=== PATIENT | female | born 1945 | race Caucasian/White ===

== ENCOUNTER 2016-12-25 16:21 | Emergency (ER) | payer OTHER ==
[~2016-12-25] VITALS: Ht 160 cm; Wt 74.4 kg
[~2016-12-25 16:21] MED LIST: ACIDOPHILUS1 EAC2 PO; ASA81BEC PO; CAL-GEST200 MG PO; COPAXONE40 MG/1 ML SQ; CYMBALTA30 MG PO; DUONEB 2.5-0.5 M3 ML INH; FLONASE 0.05%50 MCG NASAL; LIORESAL 10 MG10 MG PO; LIPITOR10 MG PO; LISINOPRIL10 MG PO; MOBIC7.5 MG PO; MUCINEX600 MG PO; NEURONTIN600 MG PO; OMEPRAZOLE20 M1 PO; TOLTERODINE TART4 MG PO; TRAMADOL 50 MG50 MG PO; VITAMINC500 PO
[2016-12-25 17:12] LABS: ABSOLUTE BASOPHILS 0.1 thou/uL (0.0-0.2); ABSOLUTE EOSINOPHILS 0.5 thou/uL (0.0-0.7); ABSOLUTE LYMPHOCYTES 1.7 thou/uL (0.8-5.3); ABSOLUTE MONOCYTES 0.7 thou/uL (0.0-1.2); BASOPHILS 0.7 %; EOSINOPHILS 6.7 %; HEMATOCRIT 38.7 % (37.0-47.0); HEMOGLOBIN 13.1 gm/dL (12.0-15.0); LYMPHOCYTES 21.1 %; MCHC 33.7 g/dL (28.0-37.0); MONOCYTES 8.6 %; MPV 9.7 fl. (7.2-11.1); NUCLEATED RBCS 0 /100WBC; PLATELET COUNT* 151 thou/uL (150-400); POLYS 62.9 %; RBC 4.35 mil/uL (4.20-5.00); RDW-CV 13.3 % (10.5-14.5)
[2016-12-25 17:19] LABS: CALCIUM 8.4 mg/dL (8.5-10.1); CREATININE 1.1 mg/dL (0.6-1.3); POTASSIUM 4.3 mmol/L (3.5-5.1)
[2016-12-25 17:24] LABS: ALBUMIN 3.2 g/dL (3.4-5.0); TOTAL BILIRUBIN 0.5 mg/dL (<0.1-1.0); TOTAL PROTEIN 5.8 g/dL (6.4-8.2)
[2016-12-25] MEDS ORDERED: LEVAQUIN 500 M500 M2 PO (18:57)
[2016-12-25] MEDS ORDERED: PROMETHAZINE V473 ML PO (18:57)
[2016-12-25] MEDS ORDERED: PROAIR HFA8.5 GM INH (18:57)
[2016-12-25] MEDS ORDERED: MEDROLDOSEPACK PO (18:57)
[2016-12-25 19:36] VITALS: BP 123/64
--- NOTE | 2016-12-26 15:17 | EKG ---
[place] [address] ELECTROCARDIOGRAM REPORT Name: ELKE AREVALO Room: [facility]#: [id number] Admission: 12/25/16 Attend Phys: Discharge: 12/25/16 Date of : 45 Report #: [id number] THIS REPORT FOR: //name// [facility] ED Test Date: 2016-12-25 Test Time: 15:53:34 Pat Name: ELKE AREVALO Department: Room: Gender: F Building Mover: DEAN : 1945 Requested By: Josey Rojas Order Number: [id number] MD: Aric Elliott Measurements Intervals [place] Rate: 77 P: 27 PA: 216 QRS: 7 QRSD: 91 T: 24 QT: 408 QTc: 462 Interpretive Statements Sinus rhythm Prolonged PA interval Baseline wander in lead(s) V5 Compared to ECG 12/19/2016 21:35:58 No significant changes Electronically Signed On 12-26-2016 15:17:28 RUBBER CALENDER HELPER by Aric Elliott [email or web address] <ELECTRONICALLY SIGNED> By: Aric Elliott MD, [facility] 12/26/16 1517 1553 1553 Aric Elliott MD, FACC /EPI
[2016-12-30] MEDS ORDERED: PREDNISONE 10 M10 MG PO (11:58)
[2016-12-30] MEDS ORDERED: CENTRUM SILVER1 EAC4 PO (11:59)
[2017-01-21] MEDS ORDERED: DOLOPHINE HCL5 MG PO (19:26)
[2017-01-22] MEDS ORDERED: PREDNISONE 20 M20 MG PO (00:56)
[2017-01-22] MEDS ORDERED: ACIDOPHILUS1 EACH PO (00:57)
[2017-01-22] MEDS ORDERED: SYNTHROID88 MCG PO (00:59)
[2017-01-22] MEDS ORDERED: TROSPIUM CHLORI20 MG PO (01:00)
[2017-01-22] MEDS ORDERED: DUONEB 2.5-0.5 M3 ML PO (01:02)
[2017-01-26] MEDS ORDERED: LEVAQUIN 750 M750 MG PO (13:36)
[2017-01-26] MEDS ORDERED: NITROGLYCERIN0.4 MG SUBLING (13:37)
== END 2016-12-25 19:37 | disposition home or self-care (01) ==
LOC: M.ERS 16:21
PROVIDERS: Physician Assistant
DX: J18.9 Pneumonia, unspecified organism (principal); K21.9 Gastro-esophageal reflux disease without esophagitis; F41.9 Anxiety disorder, unspecified; E03.9 Hypothyroidism, unspecified; G35 Multiple sclerosis; R41.82 Altered mental status, unspecified; G89.29 Other chronic pain; Z87.440 Personal history of urinary (tract) infections; Z88.1 Allergy status to other antibiotic agents; Z88.5 Allergy status to narcotic agent; Z88.2 Allergy status to sulfonamides; Z88.8 Allergy status to other drugs, medicaments and biological substances

== ENCOUNTER 2017-08-21 15:28 | Emergency (ER) | payer OTHER ==
[~2017-08-21] VITALS: Ht 157.5 cm; Wt 86.2 kg
[~2017-08-21 15:28] MED LIST changes: +ACIDOPHILUS1 EACH PO; +CENTRUM SILVER1 EAC4 PO; +DOLOPHINE HCL5 MG PO; +DUONEB 2.5-0.5 M3 ML PO; +LEVAQUIN 500 M500 M2 PO; +LEVAQUIN 750 M750 MG PO; +MEDROLDOSEPACK PO; +NITROGLYCERIN0.4 MG SUBLING; +PREDNISONE 10 M10 MG PO; +PREDNISONE 20 M20 MG PO; +PROAIR HFA8.5 GM INH; +PROMETHAZINE V473 ML PO; +SYNTHROID88 MCG PO; +TROSPIUM CHLORI20 MG PO
[2017-08-21 15:52] LABS: ABSOLUTE EOSINOPHILS 0.2 thou/uL (0.0-0.7); ABSOLUTE LYMPHOCYTES 1.4 thou/uL (0.8-5.3); ABSOLUTE MONOCYTES 0.4 thou/uL (0.0-1.2); ABSOLUTE NEUTROPHILS 4.7 thou/uL (1.6-8.1); BASOPHILS 0.4 %; EOSINOPHILS 3.5 %; HEMATOCRIT 35.5 % (37.0-47.0); HEMOGLOBIN 11.8 gm/dL (12.0-15.0); LYMPHOCYTES 20.5 %; MCH 27.6 pg (26.0-34.0); MCHC 33.1 g/dL (28.0-37.0); MCV 83.4 fL (80.0-100.0); MPV 8.8 fl. (7.2-11.1); NUCLEATED RBCS 0 /100WBC; PLATELET COUNT* 192 thou/uL (150-400); POLYS 69.6 %; RBC 4.26 mil/uL (4.20-5.00); RDW-CV 16.5 % (10.5-14.5); WBC 6.8 thou/uL (4.0-11.0)
[2017-08-21 15:59] LABS: APTT 23.5 Seconds (25.0-31.3); PROTIME 9.5 Seconds (9.20-11.50)
[2017-08-21 16:00] LABS: ANION GAP 8 mmol/L (7-16); BUN 16 mg/dL (7-18); CALCIUM 9.1 mg/dL (8.5-10.1); CHLORIDE 106 mmol/L (98-107); CO2 27 mmol/L (21-32); GLUCOSE 119 mg/dL (70-99); POTASSIUM 4.5 mmol/L (3.5-5.1); SODIUM 141 mmol/L (136-145)
[2017-08-21 16:23] LABS: ALKALINE PHOSPHATASE 63 U/L (46-116); CK-MB MASS 1.1 ng/mL (<0.5-3.6); LIPASE 81 U/L (73-393); MAGNESIUM 1.7 mg/dL (1.8-2.4); NT-PRO BRAIN NAT PEPTIDE 113 pg/mL (<300); SGOT 42 U/L (15-37); SGPT 49 U/L (30-65); TOTAL BILIRUBIN 0.3 mg/dL (<0.1-1.0); TOTAL PROTEIN 6.4 g/dL (6.4-8.2); TROPONIN-I LEVEL <0.06 ng/mL (<0.06)
[2017-08-21 17:07] VITALS: BP 119/69
--- NOTE | 2017-08-22 09:49 | EKG ---
[place] [address] ELECTROCARDIOGRAM REPORT Name: ELKE AREVALO Room: [facility]#: [id number] Admission: 08/21/17 Attend Phys: Discharge: 08/21/17 Date of : 45 Report #: [id number] THIS REPORT FOR: //name// [facility] ED Test Date: 2017-08-21 Test Time: 15:56:03 Pat Name: ELKE AREVALO Department: Room: Gender: F Last Cleaner: Tomas GORDON : 1945 Requested By: Rodrick Lockwood Order Number: [id number] MD: North Mcneal Measurements Intervals [place] Rate: 105 P: 47 NE: 184 QRS: 24 QRSD: 95 T: 37 QT: 354 QTc: 468 Interpretive Statements Sinus tachycardia Compared to ECG 01/21/2017 19:11:34 Myocardial infarct finding no longer present Electronically Signed On 08-22-2017 9:49:27 CDT by North Mcneal [email or web address] <ELECTRONICALLY SIGNED> By: North Mcneal MD, [facility] 08/22/17 0949 1556 1556 North Mcneal MD, FACC /EPI
== END 2017-08-21 17:09 | disposition home or self-care (01) ==
LOC: M.ERS 15:28
PROVIDERS: Family Medicine
DX: R09.89 Other specified symptoms and signs involving the circulatory and respiratory systems (principal); E03.9 Hypothyroidism, unspecified; F41.9 Anxiety disorder, unspecified; K21.9 Gastro-esophageal reflux disease without esophagitis; G89.29 Other chronic pain; Z88.1 Allergy status to other antibiotic agents; Z88.6 Allergy status to analgesic agent; Z88.5 Allergy status to narcotic agent; Z88.8 Allergy status to other drugs, medicaments and biological substances

== ENCOUNTER 2017-12-09 08:09 | Emergency (ER) | payer OTHER ==
[~2017-12-09] VITALS: Ht 162.6 cm; Wt 68.0 kg
[2017-12-09] MEDS ORDERED: SENNA8.6 MG PO (08:31)
[2017-12-09] MEDS ORDERED: SYMBICORT160 MCG/4. INH (08:31)
[2017-12-09] MEDS ORDERED: VESICARE 5 MG TA5 MG PO (08:32)
[2017-12-09] MEDS ORDERED: GLATIRAMER40 MG/1 ML INJECTION (08:33)
[2017-12-09] MEDS ORDERED: ONDANSETRON HCL4 M2 PO ×2 (08:34→08:35)
[2017-12-09] MEDS ORDERED: BISACODYL SUPP10 MG RECTAL (08:34)
[2017-12-09] MEDS ORDERED: MIRALAX17 GM PO (08:35)
[2017-12-09] MEDS ORDERED: TYLENOL325 MG PO (08:35)
[2017-12-09 08:47] LABS: ABSOLUTE EOSINOPHILS 0.2 thou/uL (0.0-0.7); ABSOLUTE LYMPHOCYTES 1.3 thou/uL (0.8-5.3); ABSOLUTE MONOCYTES 0.5 thou/uL (0.0-1.2); ABSOLUTE NEUTROPHILS 3.8 thou/uL (1.6-8.1); BASOPHILS 0.6 %; EOSINOPHILS 3.7 %; HEMATOCRIT 40.3 % (37.0-47.0); HEMOGLOBIN 13.4 gm/dL (12.0-15.0); LYMPHOCYTES 22.6 %; MCH 27.4 pg (26.0-34.0); MCHC 33.1 g/dL (28.0-37.0); MCV 82.7 fL (80.0-100.0); MONOCYTES 8.5 %; MPV 9.3 fl. (7.2-11.1); NUCLEATED RBCS 0 /100WBC; PLATELET COUNT* 175 thou/uL (150-400); POLYS 64.6 %; RBC 4.88 mil/uL (4.20-5.00); RDW-CV 14.9 % (10.5-14.5); WBC 5.9 thou/uL (4.0-11.0)
[2017-12-09 08:57] LABS: CALCIUM 9.1 mg/dL (8.5-10.1); POTASSIUM 4.4 mmol/L (3.5-5.1)
[2017-12-09 09:02] LABS: ALBUMIN 3.5 g/dL (3.4-5.0); TOTAL BILIRUBIN 0.3 mg/dL (<0.1-1.0); TOTAL PROTEIN 6.9 g/dL (6.4-8.2)
[2017-12-09] MEDS ORDERED: CLONAZEPAM0.25 MG PO (10:28)
[2017-12-09 11:35] VITALS: BP 128/59
== END 2017-12-09 12:18 | disposition home or self-care (01) ==
LOC: M.ERS 08:09
PROVIDERS: Emergency Medicine
DX: H05.20 Unspecified exophthalmos (principal); E03.9 Hypothyroidism, unspecified; F41.9 Anxiety disorder, unspecified; K21.9 Gastro-esophageal reflux disease without esophagitis; G89.29 Other chronic pain; G62.9 Polyneuropathy, unspecified; Z88.5 Allergy status to narcotic agent; Z88.1 Allergy status to other antibiotic agents; Z88.2 Allergy status to sulfonamides; Z88.6 Allergy status to analgesic agent; Z87.440 Personal history of urinary (tract) infections

== ENCOUNTER 2018-01-04 03:19 | Inpatient (IN) | payer OTHER ==
[~2018-01-04] VITALS: Ht 162.6 cm; Wt 96.6 kg
[2018-01-04] VITALS (21 sets, daily range): BP systolic 84–131; BP diastolic 25–61
[~2018-01-04 03:19] MED LIST changes: +BISACODYL SUPP10 MG RECTAL; +CLONAZEPAM0.25 MG PO; +GLATIRAMER40 MG/1 ML INJECTION; +MIRALAX17 GM PO; +ONDANSETRON HCL4 M2 PO; +SENNA8.6 MG PO; +SYMBICORT160 MCG/4. INH; +TYLENOL325 MG PO; +VESICARE 5 MG TA5 MG PO
[2018-01-04 03:55] LABS: HEMATOCRIT 44.8 % (37.0-47.0); HEMOGLOBIN 14.4 gm/dL (12.0-15.0); MCH 27.2 pg (26.0-34.0); MCHC 32.1 g/dL (28.0-37.0); MCV 84.6 fL (80.0-100.0); MPV 9.8 fl. (7.2-11.1); NUCLEATED RBCS 0 /100WBC; PLATELET COUNT* 152 thou/uL (150-400); RDW-CV 15.8 % (10.5-14.5)
[2018-01-04 03:57] LABS: POC CA IONIZED 4.2 mg/dL (4.5-5.3); POC CREATININE 1.6 mg/dL (0.6-1.3); POC HEMOGLOBIN 14.6 g/dL (12.0-17.0); POC POTASSIUM 5.3 mmol/L (3.5-4.9)
[2018-01-04 04:02] LABS: CALCIUM 9.4 mg/dL (8.5-10.1); CREATININE 1.8 mg/dL (0.6-1.3); POTASSIUM 5.6 mmol/L (3.5-5.1)
[2018-01-04 04:07] LABS: ALBUMIN 3.3 g/dL (3.4-5.0); TOTAL BILIRUBIN 0.9 mg/dL (<0.1-1.0)
[2018-01-04 04:15] LABS: APTT 21.3 Seconds (25.0-31.3); INR 1.1; PROTIME 11.1 Seconds (9.20-11.50)
--- NOTE | 2018-01-04 04:18 | NUR ---
PT ARRIVED BY AMBULANCE AT [address] FOR SCAN ON ARRIVAL. UNCLEAR EXACTLY WHAT HAS OCCURRED. PT NOT RESPONDING ON ARRIVAL. CT SCAN DONE AND PT BROUGHT BACK TO ED. PT WAS MOVING BOTH FEET AND FINGERS BUT NOT ABLE TO LIFT ARMS OR LEGS. NO FACIAL DROOP NOTED. PT HAS MS AND A TEMPEATURE OF 101. PT WILL OPEN EYES AND SAY A FEW WORDS. DR KIMBALL DISCONTINUED THE CODE STROKE AT 0343. UNABLE TO DO AN NIH BASELINE
[2018-01-04 04:20] LABS: BE -1.3 mmol/L (-2 to +3); HCO3 22.7 mmol/L (22.0-26.0); PO2 85.4 mmHg (75.0-100.0); pH 7.417 (7.340-7.450)
[2018-01-04 04:37] LABS: URINE BILIRUBIN NEGATIVE (Negative); URINE BLOOD NEGATIVE (Negative); URINE CLARITY CLEAR; URINE COLOR DARK YELLOW; URINE GLUCOSE-RANDOM NEGATIVE (Negative); URINE KETONES TRACE (Negative); URINE LEUKOCYTES-REFLEX NEGATIVE (Negative); URINE NITRITE-REFLEX NEGATIVE (Negative); URINE PROTEIN NEGATIVE (Negative); URINE UROBILINOGEN 0.2 E.U./dl (0.2-1.0)
[2018-01-04 04:39] LABS: INFLUENZA A ANTIGEN None Detected (None Detect); INFLUENZA B ANTIGEN None Detected (None Detect)
[2018-01-04 04:44] LABS: AMP/METHAMP Negative (Negative); BARBITURATES Negative (Negative); BENZODIAZEPINES Negative (Negative); COCAINE Negative (Negative); METHADONE POSITIVE (Negative); OPIATES Negative (Negative); PCP Negative (Negative); THC Negative (Negative)
[2018-01-04 04:49] LABS: ABSOLUTE LYMPHOCYTES 0.8 thou/uL (0.8-5.3); ABSOLUTE MONOCYTES 2.3 thou/uL (0.0-1.2); ABSOLUTE NEUTROPHILS 22.9 thou/uL (1.6-8.1); ANISOCYTOSIS Occasional; PLATELET ESTIMATE ADEQUATE; TOXIC GRANULATION Occasional
--- NOTE | 2018-01-04 06:30 | NUR ---
RECIEVED REPORT FROM ABDULAZIZ GUEVARA. PT TRANSFERRED TO RM 220. PT IS A&0X1-2 AND DROWSY BUT AROUSABLE PROBABLY DUE TO BENADRYL ADMINISTRATION BECAUSE OF ALLERGIC REACTION TO LEVAQUIN. PT ON O2 AT 3L NC WITH 93% O2 SAT. PT TRACING SR ON TELE. UNABLE TO GET A FULL ADMISSION HISTORY DUE TO PTS LOC. VSS. PHYSICAL ASSESSMENT COMPLETED AND CHARTED. CALL LIGHT WITHIN REACH.
[2018-01-04 10:15] LABS: HEMATOCRIT 32.1 % (37.0-47.0); MCH 27.4 pg (26.0-34.0); MCHC 32.8 g/dL (28.0-37.0); MCV 83.6 fL (80.0-100.0); MPV 9.5 fl. (7.2-11.1); NUCLEATED RBCS 0 /100WBC; PLATELET COUNT* 139 thou/uL (150-400); RBC 3.85 mil/uL (4.20-5.00); RDW-CV 15.7 % (10.5-14.5); WBC 21.8 thou/uL (4.0-11.0)
[2018-01-04 10:18] LABS: HEMOGLOBIN 10.5 gm/dL (12.0-15.0)
[2018-01-04 10:23] LABS: BE -1.7 mmol/L (-2 to +3); HCO3 24.4 mmol/L (22.0-26.0); PO2 VENOUS 43.5 mmHg (35.0-45.0)
[2018-01-04 10:46] LABS: CALCIUM 7.7 mg/dL (8.5-10.1); CREATININE 1.3 mg/dL (0.6-1.3)
[2018-01-04 10:47] LABS: ABSOLUTE LYMPHOCYTES 2.2 thou/uL (0.8-5.3); ABSOLUTE NEUTROPHILS 19.6 thou/uL (1.6-8.1); PLATELET ESTIMATE ADEQUATE
[2018-01-04 10:50] LABS: ALBUMIN 2.3 g/dL (3.4-5.0); MAGNESIUM 1.3 mg/dL (1.8-2.4); PHOSPHORUS* 3.3 mg/dL (2.5-4.9); POTASSIUM 4.4 mmol/L (3.5-5.1); TOTAL BILIRUBIN 0.6 mg/dL (<0.1-1.0); TOTAL PROTEIN 4.6 g/dL (6.4-8.2)
--- NOTE | 2018-01-04 11:22 | NUR ---
0900- PHYSICIAN CONTACTED DUE TO PT HYPOTENSIVE AND LETHARGIC STATUS. PT ST ON THE MONITOR AND IS TOLERATING 3L PER NC AT THIS TIME. PT ON BEDREST TO CONSERVE ENERGY AND IS REQUESTING TO GO TO SLEEP ANYTIME SHE IS BEING EVALUATED. FLUID BOLUS PROVIDED TO PT AND PT IS ALSO TOLERATING CURRENT ABX TREATMENT. 1000-DR MOROCHO IN PT ROOM TO DISCUSS TRANSFER TO ICU FOR SPECIFIC MEDICATIONS AND CENTRAL LINE PLACEMENT. PT AGREEABLE TO THIS PLAN OF CARE AT THIS TIME. 1100-PT TRANSFERED TO ICU AT THIS TIME. PT STILL HYPOTENSIVE, PT PERSONAL BELONGING BAG AND ICED TEA TAKEN WITH HER. NO PO MEDS WERE PROVIDED TO THE PT BY THIS RN THIS SHIFT. PT TOLERATED TRANSFER AND IS GETTING CONSENTED FOR CENTRAL LINE PLACEMENT WHEN THIS RN LEFT
--- NOTE | 2018-01-04 11:28 | NUR ---
Pt transferred to ICU prior to this CM being able to assess
--- NOTE | 2018-01-04 11:39 | EKG ---
[place] [address] ELECTROCARDIOGRAM REPORT Name: ELKE AREVALO Room: [address] ADM IN [facility]#: [id number] Admission: 01/04/18 Attend Phys: Trini Ponce Discharge: Date of : 45 Report #: [id number] THIS REPORT FOR: //name// [facility] ED Test Date: 2018-01-04 Test Time: 03:50:01 Pat Name: ELKE AREVALO Department: Room: [facility] Gender: F Diamond Mounter: GL : 1945 Requested By: Abelardo Mike Order Number: [id number] MD: North Mcneal Measurements Intervals [place] Rate: 125 P: 32 VT: 152 QRS: 1 QRSD: 90 T: -9 QT: 311 QTc: 449 Interpretive Statements Sinus tachycardia Borderline T abnormalities, inferior leads Baseline wander in lead(s) V4 Compared to ECG 08/21/2017 15:56:03 rate slowed Electronically Signed On 01-04-2018 11:39:41 TABLET MAKING MACHINE OPERATOR HELPER by North Mcneal [email or web address] <ELECTRONICALLY SIGNED> By: North Mcneal MD, [facility] 01/04/18 1139 0350 0350 North Mcneal MD, [facility] /EPI
--- NOTE | 2018-01-04 11:48 | NUR ---
1115 RECIEVED PT FROM FLOOR, TRANSPORTED DOWN VIA BED AND PAOLA ROBBINS. REVIEWED ORDERS/LABS AND ASSESSMENT-PT ALERT AND ORIENTED, BP 83/49 HR 99 SPO2 99% ON 4LNC. DR. CORREA AT BEDSIDE TO PLACE CENTRAL LINE. WILL REVIEW ORDERS AND CALL CONSULTS.
[2018-01-05] VITALS (12 sets, daily range): BP systolic 113–155; BP diastolic 53–82
--- NOTE | 2018-01-05 00:42 | NUR ---
INITAL ASSESMENT COMPLETED AT 1999. PT ALERT AND ORIENTED X 4, DENIED PAIN OR DISCOMFORT. NICK CATHETER PLACED AT 2230. CALL LIGHT IN REACH, PT USING APPROPRIATELY.
[2018-01-05 04:13] LABS: HEMATOCRIT 30.8 % (37.0-47.0); HEMOGLOBIN 10.2 gm/dL (12.0-15.0); MCH 27.6 pg (26.0-34.0); MCV 83.6 fL (80.0-100.0); MPV 9.6 fl. (7.2-11.1); RBC 3.69 mil/uL (4.20-5.00); RDW-CV 15.6 % (10.5-14.5); WBC 14.9 thou/uL (4.0-11.0)
[2018-01-05 04:27] LABS: CALCIUM 7.2 mg/dL (8.5-10.1); CREATININE 0.8 mg/dL (0.6-1.3); MAGNESIUM 1.5 mg/dL (1.8-2.4)
--- NOTE | 2018-01-05 09:20 | NUR ---
PATIENT CARE ASSUMED AT 0700. PATIENT AOX4. PLEASANT. COOPERATIVE. PATIENT FROM [facility]. STATES SHE WANTS US TO CALL THE SKILLED NURSING TO MAKE SURE HER GLASSES ARE IN ROOM. THIS NURSE CALLED AND GAVE THE ICU NUMBER TO RETURN PHONE CALL. PATIENT TITRTED FROM 2L NC TO ROOM AIR. VITALS STABLE. TRACING NSR TO SINUS TACH ON BRIQUETTE MACHINE OPERATOR. ORDERS TO TRANSFER UPSTAIRS. REPORT GIVEN TO PAOLA POWERS. PATIENT LEFT UNIT BY WHEELCHAIR AT 0930 WITH ELECTROCHEMIST.
--- NOTE | 2018-01-05 12:31 | CON ---
[address] [address] CONSULTATION Name: ELKE AREVALO Taina Room: [address] IN [facility].#: [id number] Admission: 01/04/18 Attend Phys: Trini Ponce Discharge: Date of : 45 Report #: [id number] THIS REPORT FOR: //name// CC: ASHLEY physician/PCP Jhon Bashir DATE OF SERVICE: 01/04/2018 INFECTIOUS DISEASE CONSULTATION ATTENDING PHYSICIAN: Jhon Bashir DO REASON FOR EVALUATION: Septic shock, probable pneumonitis with lactic acidemia. HISTORY OF PRESENT ILLNESS: Chart reviewed, patient examined. This is a 72-year-old woman, with history of MS, complicated by some deficits, peripheral neuropathy, who is a [facility] resident, was admitted due to profound encephalopathy with loss of responsiveness, some concern about stroke with description of a facial droop and some slurred speech. She was evaluated and has a question of basilar infiltrate. Urinalysis was otherwise unremarkable. She was noted to have some low grade temperature elevations. After being admitted to the floor, was found to have somewhat refractory hypotension. She was given additional fluids and transitioned to the Intensive Care Unit and slowly has improved from a mental status standpoint. She was empirically placed on vancomycin and meropenem. She has not required pressor support at this point. She is on supplemental oxygen per nasal cannula. ALLERGIES: MULTIPLE INCLUDING SULFA, MORPHINE, CODEINE, HYDROCODONE, CEPHALOSPORINS, PENICILLINS, erythromycin, CHLORPHENIRAMINE, MEPERIDINE, LEVOFLOXACIN. CURRENT MEDICATIONS: Includes meloxicam, lisinopril, fluticasone, aspirin, levothyroxine, vancomycin, methadone, duloxetine, baclofen, atorvastatin, ipratropium and albuterol inhaler, gabapentin, meropenem, methylprednisolone. PAST MEDICAL HISTORY: As noted above, history of MS, chronic pain syndrome, peripheral neuropathy, hypothyroidism, reflux, anxiety, depression, nutcracker esophagus, history of urinary tract infections, renal insufficiency. SOCIAL HISTORY: Nonsmoker, no ethanol. FAMILY HISTORY: Noncontributory. REVIEW OF SYSTEMS: Limited due to the altered mental status. PHYSICAL EXAMINATION: [place] [address] CONSULTATION Name: ELKE AREVALO Room: [address] IN [facility]#: [id number] Admission: 01/04/18 Attend Phys: Trini Ponce Discharge: Date of : 45 Report #: [id number] GENERAL: She appears chronically ill, mildly undernourished. She is in mild to moderate distress. VITAL SIGNS: Temperature max 101.0, repeat 98.9, pulse 107, respirations 18, blood pressure 84/25. SKIN: Warm, dry, no rashes. HEENT: No conjunctivitis. Oropharynx is dry. No ulcers. NECK: Supple. LUNGS: Diminished breath sounds, scattered crackles at the bases. HEART: Regular, tachycardic. Soft systolic murmur. ABDOMEN: Soft, nontender, nondistended. There are no peritoneal signs. No CVA tenderness. GENITOURINARY: Deferred. RECTAL: Deferred. LABORATORY DATA: Chest x-ray, right basilar infiltrate. Electrolytes: Sodium 138, potassium 5.6, chloride 102, bicarbonate is 25, BUN and creatinine 25 and 1.8, glucose of 135. AST of 50, ALT of 64, albumin 3.3, total protein 7.0. ABG, pH 7.417, pCO2 of 36.0, pO2 of 85.4 on 4 liters. Lactic acid initially was 3.2, serially down to 2.5. Influenza antigen was negative. Urinalysis unremarkable. CBC: White count 26.0, H and H and 14.4 and 44.8, platelets of 152. Did have occasional toxic granulomas. Drug screen was positive for methadone. ASSESSMENT: Septic shock of uncertain source, perhaps early pneumonitis. Urinalysis does not favor complicated urinary tract infection. It is reasonable to continue empiric antimicrobial therapy at this point. She has had multiple allergies. We will await cultures of the blood. At this point, she is mildly hemodynamically unstable, but seems to be responding to fluid resuscitation. Defer any additional intervention based on clinical deterioration. We may need to consider imaging of the abdomen and pelvis if does not respond and do not otherwise have a clear source of infection. Thank you, we will follow. <ELECTRONICALLY SIGNED> By: Jose Guadalupe Sanchez MD 01/05/18 1231 2201 0056Joangie Sanchez MD /nt
--- NOTE | 2018-01-05 13:14 | NUR ---
Nutrition: Pt admitted for sepsis. H/o GERD, MS, nutcracker esophagus, trouble swallowing. From [place]. Usual wt is ~180-190#, today's wt is recorded as 200#. Diet advanced to Regular. Labs: alb 1.3, prealb 15, K+ 5.3. Has a central line. Pt appears nutritionally stable at this time. Will follow labs, po intake, wt. Follow up 01/09/18.
--- NOTE | 2018-01-05 18:47 | NUR ---
PATIENT PROGRESSING TOWARDS GOALS. UP WITH ASSIST X1 TO WHEELCHAIR. VSS. GRADUATE ASSISTANT TRACING SR. ADVANCED TO REGULAR DIET PER SPEECH THERAPY EVALUATION. PATIENT TOLERATING A REGULAR DIET WITHOUT NAUSEA OR VOMITING. HOURLY ROUNDING CHARTED. BED ALARM ON. CALL LIGHT WITHIN REACH. WILL CONTINUE TO MONITOR.
[2018-01-06] VITALS: BP 112/61
--- NOTE | 2018-01-06 03:06 | NUR ---
PATIENT RESTED IN BED, NO ACUTE CHANGES. PATIENT DID NOT SHOW SIGNS OF DISTRESS. FALL PRECAUTIONS IN PLACE, CALL LIGHT WITH IN REACH, HOURLY ROUNDING OBSERVED, BED ALARM ON.
[2018-01-06 03:43] LABS: HEMATOCRIT 30.4 % (37.0-47.0); MCH 27.3 pg (26.0-34.0); MCV 82.7 fL (80.0-100.0); RBC 3.68 mil/uL (4.20-5.00); RDW-CV 15.3 % (10.5-14.5)
[2018-01-06 03:48] LABS: CREATININE 1.2 mg/dL (0.6-1.3); POTASSIUM 3.9 mmol/L (3.5-5.1)
[2018-01-06 04:00] VITALS: BP 132/62
[2018-01-06 08:23] VITALS: BP 138/78
[2018-01-06 12:32] VITALS: BP 141/69
--- NOTE | 2018-01-06 14:38 | NUR ---
Pt is A&O. Resides at [facility]. Pt states that she has a walker and wc that she can use, Pt primarily uses the wc. Spoke with Siobhan at [facility], they are able to accept Pt back over the weekend, if medically stable for dc. Siobhan asked that transportation be arranged through [employer] [phone]. DC orders will need to be faxed to [phone]. Nurse report number is [id number]
[2018-01-06 15:46] VITALS: BP 142/70
--- NOTE | 2018-01-06 16:40 | NUR ---
ASSUMED CARE OF PT AT 0730. PT REMAINS A&O CALMA AND COOPERATIVE. PT C/O PAIN CONTROLLED WITH SCHEDULED PAIN MEDICATION. PT VSS ON ROOM AIR AND TRACING SR ON THE MONITOR. PT HAS HAD A GOOD APPETITTE AND HAS AT GREATER THAN 75% OF ALL MEALS TODAY. NURSING ASSESSMENT COMPLETED AND DOCUMENTS. MEDICATIONS ADMINISTERED PER APR. HOURLY ROUNDING COMPLETED FOR PT COMFORT AND SAFTEY. NURSING WILL CONTINUE TO MONITOR.
[2018-01-06 20:00] VITALS: BP 135/72
[2018-01-07] VITALS: BP 148/73
--- NOTE | 2018-01-07 00:09 | NUR ---
PATIENT RESTED IN BED, NO ACUTE CHANGES. PATIENT DID NOT SHOW SIGNS OF DISTRESS. FALL PRECAUTIONS IN PLACE, CALL LIGHT WITH IN REACH, HOULRY ROUNDING OBSERVED, BED ALARM ON.
[2018-01-07 04:00] VITALS: BP 161/85
[2018-01-07 04:16] LABS: HEMATOCRIT 30.8 % (37.0-47.0); HEMOGLOBIN 10.4 gm/dL (12.0-15.0); MCH 27.8 pg (26.0-34.0); MCHC 33.7 g/dL (28.0-37.0); MCV 82.5 fL (80.0-100.0); MPV 10.4 fl. (7.2-11.1); RBC 3.74 mil/uL (4.20-5.00); WBC 10.2 thou/uL (4.0-11.0)
[2018-01-07 05:04] LABS: POTASSIUM 4.1 mmol/L (3.5-5.1)
[2018-01-07 08:43] VITALS: BP 170/81
--- NOTE | 2018-01-07 09:00 | NUR ---
REC'D REPORT FROM NOC RN, ASSUMED CARE OF PT APPROX 0730. PT HAS BEEN SLEEPING UNTIL BREAKFAST ARRIVED AT 0830. NOW A&O X4, ABLE TO COMMUNICATE NEEDS TO STAFF. INDIVIDUAL PENSION CONSULTANT IN PLACE, SR. O2 SATS >92% ON RA. ASSESSMENT COMPLETE. VSS. IV SL. CALL LIGHT WITHIN REACH.
[2018-01-07 15:35] VITALS: BP 159/70
--- NOTE | 2018-01-07 18:47 | NUR ---
PT HAD 3 EPISODES OF URINARY INCONTINENCE DURING THIS SHIFT. STATES SHE FEELS THAT SHE IS VOIDING NORMALLY SINCE HER CATHETER WAS REMOVED AT 0900 THIS A.M. SHE STATES THAT SHE CAN SENSE WHEN SHE HAS TO URINATE, BUT IT IS AN URGENT NEED WHEN THE SENSATION OCCURS. PT HAD EPISODE OF ABDOMINAL PAIN AND FEELING ILL STATING THAT THIS IS UNUSUAL FOR HER. OBTAINED STAT EKG WHICH WAS SINUS RHYTHM. PT STATED SHE HAD NAUSEA AND WAS GIVEN ZOFRAN IVP ORDERED PRN. WITHIN AN HOUR PT WAS FEELING RELIEF FROM NAUSEA/PAIN. PT STATES THAT HER TUMS HELP HER SO MUCH IF SHE TAKES THEM BEFORE HER MEAL.
[2018-01-07 20:00] VITALS: BP 141/74
[2018-01-08] VITALS: BP 135/65
--- NOTE | 2018-01-08 02:24 | NUR ---
PATIENT RESTED IN BED, NO ACUTE CHANGES. FALL PRECAUTIONS IN PLACE, BED ALARM ON, CALL LIGHT WITH IN REACH, HOURLY ROUNDING OBSEREVED. PATIENT DOES NOT APPEAR TO BE IN DISTRESS.
[2018-01-08 03:07] LABS: HEMATOCRIT 30.1 % (37.0-47.0); HEMOGLOBIN 10.1 gm/dL (12.0-15.0); MCH 27.5 pg (26.0-34.0); MCHC 33.4 g/dL (28.0-37.0); MCV 82.4 fL (80.0-100.0); MPV 9.6 fl. (7.2-11.1); RBC 3.66 mil/uL (4.20-5.00); RDW-CV 15.2 % (10.5-14.5); WBC 9.7 thou/uL (4.0-11.0)
[2018-01-08 03:23] LABS: CALCIUM 7.4 mg/dL (8.5-10.1); MAGNESIUM 1.7 mg/dL (1.8-2.4); POTASSIUM 3.7 mmol/L (3.5-5.1)
[2018-01-08 08:05] VITALS: BP 143/84
--- NOTE | 2018-01-08 10:30 | NUR ---
REC'D REPORT FROM NOC RN, ASSUMED CARE OF PT APPROX 0730. A&O X4, ABLE TO COMMUNICATE NEEDS TO STAFF. MED/SURG STATUS. VSS. O2 SATS >92% ON RA. ASSESSMENT COMPLETE, DOCUMENTED. MEDS PER APR. UP TO CHAIR FOR BREAKFAST, TRANSFERS WITH ASSIST OF WALKER AND SBA. NONSKID SOCKS ON BILAT FEET WHEN OOB. CALL LIGHT WITHIN REACH.
--- NOTE | 2018-01-08 14:20 | EKG ---
[place] [address] ELECTROCARDIOGRAM REPORT Name: ELKE AREVALO Room: [address] ADM IN [facility]#: [id number] Admission: 01/04/18 Attend Phys: Trini Ponce Discharge: Date of : 45 Report #: [id number] THIS REPORT FOR: //name// [facility] Test Date: 2018-01-07 Test Time: 16:04:32 Pat Name: ELKE AREVALO Department: Room: [address] Gender: F Antique Furniture Repairer: : 1945 Requested By: Hadley Morfin Order Number: [id number] Kenneth MD: North Mcneal Measurements Intervals [place] Rate: 72 P: 53 ND: 152 QRS: 30 QRSD: 96 T: 38 QT: 413 QTc: 453 Interpretive Statements Sinus rhythm Compared to ECG 01/04/2018 03:50:01 Sinus tachycardia no longer present T-wave abnormality no longer present Electronically Signed On 01-08-2018 14:20:41 ELECTRONIC INSTALLER by North Mcneal [email or web address] <ELECTRONICALLY SIGNED> By: North Mcneal MD, [facility] 01/08/18 1420 1604 1604 North Mcneal MD, FAC /EPI
[2018-01-08 16:00] VITALS: BP 159/86
[2018-01-08 20:00] VITALS: BP 121/71
[2018-01-09 03:33] LABS: HEMATOCRIT 30.4 % (37.0-47.0); HEMOGLOBIN 10.3 gm/dL (12.0-15.0); MCH 27.6 pg (26.0-34.0); MCHC 33.9 g/dL (28.0-37.0); MCV 81.4 fL (80.0-100.0); MPV 9.5 fl. (7.2-11.1); RBC 3.73 mil/uL (4.20-5.00); RDW-CV 15.2 % (10.5-14.5); WBC 8.8 thou/uL (4.0-11.0)
[2018-01-09 03:45] LABS: CALCIUM 7.7 mg/dL (8.5-10.1); CREATININE 0.8 mg/dL (0.6-1.3); POTASSIUM 3.9 mmol/L (3.5-5.1)
--- NOTE | 2018-01-09 06:23 | NUR ---
this nurse assumes care of pt 01/08/18, pt is alert and oriented x4, pleasant mood, pt complains of pain from hips down to feet bilaterally, pt medicated for pain, hs meds administered, pt calls out appropriately during the night for brp, she is up with assist x1 and use of gait belt, pt has episodes of urge incontinence, pt continues on iv abx, remains afebrile, lung sounds cta, pt denies soa, occasional non productive cough noted, pt voices no complaints/concerns, pt says she is discharging back to half-way today, resting quietly in bed at this time with call light within reach
[2018-01-09 08:00] VITALS: BP 106/69
--- NOTE | 2018-01-09 12:28 | NUR ---
Nutrition: follow up note. Wt still increasing, 213# today. PO intake is varied: 10-90% of meals. Labs: BG 152, alb 2.3, prealb 15. Plan for discharge tomorrow, per progress note. Low risk.
--- NOTE | 2018-01-09 15:07 | NUR ---
SPOKE WITH DR MOROCHO AND DR ROOT REGARDING DC. OK RECEIVED FROM BOTH PHYSICIANS AND ORDERS NOTED FOR ANTIBIOTIC AT [place].
--- NOTE | 2018-01-09 15:22 | NUR ---
ROD PLACER SPOKE TO EUGENE WITH ADMISSIONS AT [facility] TO INFORM OF THE PATIENT'S DISCHARGE AND FAXED THE PATIENT'S D/C ORDERS. D/C ADVERTISING SALES CONSULTANT SETUP TRANSPORTATION FOR THE PATIENT WITH [facility] FOR 8190-1904. D/C ADVERTISING SALES CONSULTANT SPOKE TO THE PATIENT TO INFORM OF HER D/C BACK TO [facility] AT 0541-1319. PATIENT IN AGREEMENT. D/C ADVERTISING SALES CONSULTANT INFORMED THE RN IN-CHARGE OF THE PATIENT OF THE PATIENT'S TIME OF TRANSPORT AND WHERE TO CALL REPORT. CM WILL REMAIN AVIALABLE TO ASSIST AND FOLLOW NEEDED. [facility] PHONE: [phone] [facility] PHONE: [phone]
--- NOTE | 2018-01-09 16:19 | NUR ---
PT EVALUATION ORDERS RECEIVED ON 01/08/18 AT 0828 AND CANCEL ORDER PHYSICAN DC REQUEST ON 01/08/18 AT 0832. DISCUSSED W/ NSG ON 01/09/18 AT 0910 IF PHYSCIAN WANTED PT EVALUATION AND TREATMENT. NSG ATTEMPTED TO CONFIRM W/ PHYSICIAN. NO CONFIRMATION AND/OR NEW ORDERS RECEIVED OF 01/09/18 AT 1621.
[2018-01-09] MEDS ORDERED: NYSTATIN100000 UNI SW&SWALLOW (16:26)
[2018-01-09 16:27] VITALS: BP 106/69
[2018-01-09] MEDS ORDERED: ZYVOX600 MG PO (16:27)
--- NOTE | 2018-01-09 17:16 | NUR ---
REPORT CALLED TO [facility] AT THIS TIME. PATIENT'S CENTRAL LINE DISCONTINUED PRIOR TO DISCHARGE. PATIENT DISCHARGED TO [facility] VIA WHEELCHAIR VAN.
== END 2018-01-09 17:25 | DRG 871 ==
LOC: M.ERS 03:19 → M.TBA-ER 04:29 → M.2W 04:29 → M.ICU 11:04 → M.2W 01-05 09:57 → M.3W 01-08 14:55
PROVIDERS: Emergency Medicine; Internal Medicine; ADMIT Internal Medicine
DX: A41.9 Sepsis, unspecified organism (principal); R65.21 Severe sepsis with septic shock; J69.0 Pneumonitis due to inhalation of food and vomit; G92 Toxic encephalopathy; N17.0 Acute kidney failure with tubular necrosis; Z66 Do not resuscitate; K22.4 Dyskinesia of esophagus; G62.9 Polyneuropathy, unspecified; F41.9 Anxiety disorder, unspecified; B95.62 Methicillin resistant Staphylococcus aureus infection as the cause of diseases classified elsewhere; B95.3 Streptococcus pneumoniae as the cause of diseases classified elsewhere; K21.9 Gastro-esophageal reflux disease without esophagitis; E03.9 Hypothyroidism, unspecified; G89.29 Other chronic pain; G35 Multiple sclerosis; Z87.440 Personal history of urinary (tract) infections; Z88.5 Allergy status to narcotic agent; Z88.1 Allergy status to other antibiotic agents; Z88.2 Allergy status to sulfonamides; Z88.8 Allergy status to other drugs, medicaments and biological substances; Z79.82 Long term (current) use of aspirin; Z79.899 Other long term (current) drug therapy

== ENCOUNTER 2018-02-18 17:20 | Observation (INO) | payer OTHER ==
[~2018-02-18] VITALS: Ht 160 cm; Wt 84.4 kg
[~2018-02-18 17:20] MED LIST changes: -DUONEB 2.5-0.5 M3 ML INH; +Duoneb; +NEURONTIN 300300 M1 PO; -NEURONTIN600 MG PO; +NYSTATIN100000 UNI SW&SWALLOW; +ZYVOX600 MG PO
[2018-02-18 17:21] VITALS: BP 130/75
[2018-02-18 17:51] LABS: ABSOLUTE EOSINOPHILS 0.3 thou/uL (0.0-0.7); ABSOLUTE LYMPHOCYTES 1.7 thou/uL (0.8-5.3); ABSOLUTE MONOCYTES 0.6 thou/uL (0.0-1.2); ABSOLUTE NEUTROPHILS 4.8 thou/uL (1.6-8.1); BASOPHILS 0.5 %; EOSINOPHILS 4.1 %; HEMATOCRIT 35.3 % (37.0-47.0); HEMOGLOBIN 11.8 gm/dL (12.0-15.0); LYMPHOCYTES 22.5 %; MCH 27.3 pg (26.0-34.0); MCHC 33.4 g/dL (28.0-37.0); MCV 81.6 fL (80.0-100.0); MONOCYTES 8.1 %; MPV 9.2 fl. (7.2-11.1); NUCLEATED RBCS 0 /100WBC; PLATELET COUNT* 192 thou/uL (150-400); POLYS 64.8 %; RBC 4.33 mil/uL (4.20-5.00); RDW-CV 15.3 % (10.5-14.5); WBC 7.4 thou/uL (4.0-11.0)
[2018-02-18 18:01] LABS: ANION GAP 7 mmol/L (7-16); BUN 17 mg/dL (7-18); CALCIUM 8.8 mg/dL (8.5-10.1); CHLORIDE 102 mmol/L (98-107); CO2 30 mmol/L (21-32); CREATININE 1.1 mg/dL (0.6-1.3); GLUCOSE 91 mg/dL (70-99); POTASSIUM 4.5 mmol/L (3.5-5.1); SODIUM 139 mmol/L (136-145)
[2018-02-18] MEDS ORDERED: SYMBICORT160 MCG/4. INH (18:03)
[2018-02-18 18:04] LABS: APTT 24.3 Seconds (25.0-31.3)
[2018-02-18] MEDS ORDERED: DETROL2 M1 PO (18:04)
[2018-02-18 18:21] LABS: ALBUMIN 3.5 g/dL (3.4-5.0); ALKALINE PHOSPHATASE 62 U/L (46-116); CK-MB MASS 1.3 ng/mL (<0.5-3.6); LIPASE 84 U/L (73-393); MAGNESIUM 1.4 mg/dL (1.8-2.4); NT-PRO BRAIN NAT PEPTIDE 116 pg/mL (<300); SGOT 29 U/L (15-37); SGPT 43 U/L (30-65); TOTAL BILIRUBIN 0.4 mg/dL (<0.1-1.0); TOTAL PROTEIN 6.7 g/dL (6.4-8.2); TROPONIN-I LEVEL <0.06 ng/mL (<0.06)
[2018-02-18 19:38] VITALS: BP 122/71
[2018-02-18 20:00] VITALS: BP 126/60
[2018-02-19] VITALS: BP 118/58
[2018-02-19 04:00] VITALS: BP 109/67
[2018-02-19 08:17] VITALS: BP 107/43
[2018-02-19 11:18] LABS: URINE BILIRUBIN NEGATIVE (Negative); URINE BLOOD TRACE (Negative); URINE CLARITY CLEAR; URINE COLOR YELLOW; URINE GLUCOSE-RANDOM NEGATIVE (Negative); URINE KETONES NEGATIVE (Negative); URINE LEUKOCYTES-REFLEX TRACE (Negative); URINE PROTEIN NEGATIVE (Negative); URINE UROBILINOGEN 0.2 E.U./dl (0.2-1.0)
--- NOTE | 2018-02-19 11:18 | EKG ---
[place] [address] ELECTROCARDIOGRAM REPORT Name: ELKE AREVALO Room: [address] ADM IN [facility].#: [id number] Admission: 02/18/18 Attend Phys: Bryson Christianson, Discharge: Date of : 45 Report #: [id number] THIS REPORT FOR: //name// [facility] ED Test Date: 2018-02-18 Test Time: 17:34:48 Pat Name: ELKE AREVALO Department: Room: [facility] Gender: F Compounder Flavorings: Tomas PEARL : 1945 Requested By: Endy Mills Order Number: [id number] MD: Lonnie Ludwig Measurements Intervals [place] Rate: 102 P: 24 [place]: 179 QRS: 10 QRSD: 94 T: 24 QT: 346 QTc: 451 Interpretive Statements Sinus tachycardia Compared to ECG 01/07/2018 16:04:32 Sinus rate has increased Electronically Signed On 02-19-2018 11:18:38 CARPENTER PROTOTYPE by Lonnie Ludwig [email or web address] <ELECTRONICALLY SIGNED> By: Lonnie Ludwig MD, [facility] 02/19/18 1118 1734 173 Lonnie Ludwig MD, FACC /EPI
[2018-02-19 11:27] LABS: URINE NITRITE-REFLEX POSITIVE (Negative)
[2018-02-19 11:39] LABS: SQUAMOUS >10 Many /LPF (0-3); URINE WBC-REFLEX 6-15 Few /HPF (0-5)
[2018-02-19 11:40] LABS: BACTERIA-REFLEX >30 Many /HPF (None Seen); CASTS None Seen /LPF (None Seen); CRYSTALS None Seen /LPF (None Seen); MUCUS None Seen strn/LPF (None Seen); URINE RBC 0-2 Rare /HPF (0-2)
[2018-02-19 12:02] VITALS: BP 142/79
[2018-02-19 16:00] VITALS: BP 142/56
[2018-02-19 20:04] VITALS: BP 102/82
[2018-02-20] VITALS (8 sets, daily range): BP systolic 78–139; BP diastolic 37–57
[2018-02-20 07:30] LABS: ABSOLUTE EOSINOPHILS 0.2 thou/uL (0.0-0.7); ABSOLUTE LYMPHOCYTES 1.5 thou/uL (0.8-5.3); ABSOLUTE MONOCYTES 0.5 thou/uL (0.0-1.2); ABSOLUTE NEUTROPHILS 3.9 thou/uL (1.6-8.1); BASOPHILS 0.4 %; EOSINOPHILS 3.3 %; LYMPHOCYTES 24.6 %; MCH 27.5 pg (26.0-34.0); MCHC 33.2 g/dL (28.0-37.0); MCV 82.6 fL (80.0-100.0); MONOCYTES 8.6 %; MPV 9.8 fl. (7.2-11.1); NUCLEATED RBCS 0 /100WBC; PLATELET COUNT* 170 thou/uL (150-400); POLYS 63.1 %; RDW-CV 15.2 % (10.5-14.5); WBC 6.1 thou/uL (4.0-11.0)
[2018-02-20 07:38] LABS: CALCIUM 8.6 mg/dL (8.5-10.1); CREATININE 1.2 mg/dL (0.6-1.3); POTASSIUM 3.7 mmol/L (3.5-5.1)
[2018-02-20 07:42] LABS: TOTAL BILIRUBIN 0.5 mg/dL (<0.1-1.0); TOTAL PROTEIN 5.6 g/dL (6.4-8.2)
--- NOTE | 2018-02-20 14:05 | 2DMMODE ---
[place] [address] 2 D/M-MODE ECHOCARDIOGRAM Name: ELKE AREVALO Room: [address] MPrasanthR.#: [id number] Admission: 02/18/18 Attend Phys: Bryson Henriquez Discharge: Date of : 45 Date of Service: 02/20/18 1405 Report #: [id number] THIS REPORT FOR: //name// APPROVED REPORT Study performed: 02/20/2018 10:51:00 EXAM: Comprehensive 2D, Doppler, and color-flow Echocardiogram Patient Location: Bedside BSA: 1.90 HR: 97 bpm BP: 86/41 mmHg Other Information Study Quality: Fair Indications Chest Pain 2D Dimensions IVSd: 11.01 (7-11mm) LVOT Diam: 20.24 (18-24mm) LVDd: 44.04 mm PWd: 10.23 (7-11mm) Ascending Ao: 34.57 (22-36mm) LVDs: 26.65 (25-40mm) Aortic Root: 26.78 mm Volumes Left Atrial Volume (Systole) LA ESV Index: 26.00 mL/m2 Aortic Valve AoV Peak Bruno.: 1.27 m/s AO Peak Gr.: 6.46 mmHg LVOT Max P.74 mmHg AO Mean Gr.: 3.50 mmHg LVOT Mean P.81 mmHg LVOT Max V: 1.20 m/s AO V2 VTI: 24.53 cm LVOT Mean V: 0.77 m/s KAREN (VTI): 2.99 cm2 LVOT V1 VTI: 22.79 cm Mitral Valve E/A Ratio: 0.78 MV Decel. Time: 192.69 ms MV E Max Bruno.: 0.97 m/s MV PHT: 55.88 ms MVA (PHT): 3.94 [place] [address] 2 D/M-MODE ECHOCARDIOGRAM Name: ELKE AREVALO Room: [address] Ethel#: [id number] Admission: 02/18/18 Attend Phys: Bryson Henriquez Discharge: Date of : 45 Date of Service: 02/20/18 1405 Report #: [id number] TDI E/Lateral E': 9.70 E/Medial E': 13.86 Medial E' Bruno.: 0.07 m/s Lateral E' Bruno.: 0.10 m/s Pulmonary Valve PV Peak Bruno.: 0.77 m/s PV Peak Gr.: 2.38 mmHg Tricuspid Valve RAP Estimate: 5.00 mmHg TR Peak Gr.: 31.43 mmHg RVSP: 36.43 mmHg PA Pressure: 36.43 mmHg Left Ventricle The left ventricle is normal size. There is normal LV segmental wall motion. There is normal left ventricular wall thickness. Left ventricular systolic function is normal. The left ventricular ejection fraction is within the normal range. LVEF is 55-60%. Grade I - abnormal relaxation pattern. Right Ventricle The right ventricle is normal size. The right ventricular systolic function is normal. Atria Left atrium is mildly dilated. The right atrium size is normal. Aortic Valve Mild aortic valve sclerosis. No aortic regurgitation is present. There is no aortic valvular stenosis. Mitral Valve Moderate mitral annular calcification. Mild mitral regurgitation. No evidence of mitral valve stenosis. Tricuspid Valve The tricuspid valve is normal in structure. Trace tricuspid regurgitation. Pulmonic Valve The pulmonary valve is normal in structure. There is no pulmonic valvular regurgitation[place] [address] 2 D/M-MODE ECHOCARDIOGRAM Name: ELKE AREVALO [address] [id number] Admission: 02/18/18 Attend Phys: Bryson Henriquez Discharge: Date of : 45 Date of Service: 02/20/18 1405 Report #: [id number] The aortic root is normal in size. Pericardium There is no pericardial effusion. <Conclusion> The left ventricle is normal size. There is normal left ventricular wall thickness. Left ventricular systolic function is normal. The left ventricular ejection fraction is within the normal range. LVEF is 55-60%. Grade I - abnormal relaxation pattern. The right ventricle is normal size. Left atrium is mildly dilated. Mild aortic valve sclerosis. No aortic regurgitation is present. There is no aortic valvular stenosis. Moderate mitral annular calcification. Mild mitral regurgitation. No evidence of mitral valve stenosis. The tricuspid valve is normal in structure. There is no pericardial effusion. There is normal LV segmental wall motion. <ELECTRONICALLY SIGNED> By: Lonnie Ludwig MD, FACC 02/20/18 1405 1405 1405 Lonnie Ludwig MD, FACC /INF
--- NOTE | 2018-02-20 17:09 | CARDNUC ---
[place] [address] CARDIAC NUCLEAR IMAGING REPORT Name: ELKE AREVALO Room: [address]#: [id number] Admission: 02/18/18 Attend Phys: Bryson Henriquez Discharge: Date of : 45 Date of Service: 02/20/18 1708 Report #: [id number] THIS REPORT FOR: //name// APPROVED REPORT Study performed: 02/20/2018 09:57:00 Indication: Chest pain Patient Location: In-Patient Room #: 219 Stress Tech: Rocio Castillo Stress Nurse: Rosemarie Gill RN Ht: 5 ft 2 in Wt: 185 lbs BSA: 1.85 m2 HR: 85 bpm BP: 119/65 mmHg BMI: 33.83 Rhythm: NSR Medical History Medical History: Hyperlipidemia Medications: No cardiac medications Allergies: levaquin codeine biaxin hydrocodone morphine demerol sulfa Cardiac Risk Factors: HTN Pretest Chest Pain Characteristics: No chest pain Exercise History: Sedentary Physical Disabilities: MS Resting Data Rest SPECT myocardial perfusion imaging was performed in supine position 30 minutes following the intravenous injection of 11.2 mCi of Tc-99m Sestamibi. Time of rest injection: 13:00 The images were gated to evaluate regional wall motion and calculate left ventricular ejection fraction. Administration Route: IV Administration Site: Left AC Pharmacologic Stress Pharmacologic stress test was performed by injecting Regadenoson 0.4 mg IV push over 10-15 seconds immediately followed by the intravenous injection of 32.7 mCi of Tc-99m Sestamibi. Time of stress injection: 15:15 Administration Route: IV Administration Site: [place] [address] CARDIAC NUCLEAR IMAGING REPORT Name: ELKE AREVALO Room: [address]#: [id number] Admission: 02/18/18 Attend Phys: Bryson Henriquez Discharge: Date of : 45 Date of Service: 02/20/18 1708 Report #: [id number] Heart Rate at time of stress injection: 103 bpm. Gated Stress SPECT was performed 40 minutes after stress injection. The images were gated to evaluate regional wall motion and calculate left ventricular ejection fraction. Stress Test Details Stress Test: Pharmacologic stress testing performed using 0.4 mg of regadenoson per 5 mL given IV over 10 seconds. HR Max Heart Rate (APMHR): 148 bpm Resting HR: 85 bpm Target HR (85% APMHR): 125 bpm Recovery HR: 101 bpm BP Resting BP: 119/65 mmHg Max BP: 103/52 mmHg Recovery BP: 96/49 mmHg ECG Resting ECG: Sinus Rhythm Stress ECG: Sinus Rhythm ST Change: None Arrhythmia: None Recovery ECG: Sinus Rhythm Recovery ST Change: None Recovery Arrhythmia: None Clinical Reason for Termination: Completed protocol Stress Symptoms: Headache, Leg Fatigue The patient tolerated Lexiscan infusion without significant symptoms. Stress ECG Conclusion The baseline 12-lead EKG shows sinus rhythm with no significant ST or T wave abnormalities. EKGs obtained during and post Lexiscan infusion show sinus rhythm with no significant ST or T wave changes when compared to baseline. There were no stress-induced arrhythmias. Study Quality Study: Good Artifact: [place] [address] CARDIAC NUCLEAR IMAGING REPORT Name: ELKE AREVALO Room: [address] M..#: [id number] Admission: 02/18/18 Attend Phys: Bryson Henriquez Discharge: Date of : 45 Date of Service: 02/20/18 1708 Report #: [id number] At rest, the left ventricular ejection fraction was 69%.. Post stress, the left ventricular ejection was 82%.. TID = 0.84. Perfusion Normal left ventricular perfusion. Wall Motion Normal left ventricular wall motion. Nuclear Conclusion ECG Findings: negative for ischemia Clinical Findings: negative for ischemia Nuclear Findings: negative for ischemia Exercise Capacity: not assessed Left Ventricular Function: normal Risk Study: low Myocardial perfusion images show no defect to suggest infarct or ischemia. Left ventricular systolic function appears normal on gated studies. This is a low risk study. <Conclusion> The baseline 12-lead EKG shows sinus rhythm with no significant ST or T wave abnormalities. EKGs obtained during and post Lexiscan infusion show sinus rhythm with no significant ST or T wave changes when compared to baseline. There were no stress-induced arrhythmias. <ELECTRONICALLY SIGNED> By: Aric Elliott MD, FACC 02/20/181707 07 07 Aric Elliott MD, FACC /INF
[2018-02-21] VITALS: BP 86/38
[2018-02-21 04:00] VITALS: BP 99/44
[2018-02-21 07:30] VITALS: BP 103/47
--- NOTE | 2018-02-21 09:46 | CON ---
[address] [address] CONSULTATION Name: ELKE AREVALO Room: [address] Ethel#: [id number] Admission: 02/18/18 Attend Phys: Bryson Christianson, Discharge: Date of : 45 Report #: [id number] THIS REPORT FOR: //name// CC: ASHLEY physician/PCP Bryson Christianson DATE OF SERVICE: 02/20/2018 TYPE OF CONSULTATION: Cardiology. LOCATION: The patient is in [facility]. This is a patient of Dr. Christianson. HISTORY OF PRESENT ILLNESS: The patient is a pleasant 72-year-old female with underlying multiple sclerosis. She presented to the hospital after a prolonged, approximately 30-minute episode of central chest pain that radiated through to the back. This ultimately remitted after sublingual nitrates and she also received aspirin in transit to the hospital. She has had no recurrence since admission and there has been no enzymatic or electrocardiographic evidence for acute myocardial injury. She described it as a central chest heaviness, radiating through to the back, which she has not experienced in the past. She does have a family history of coronary artery disease and hypertension. She denies cigarette smoking, diabetes, known hypercholesterolemia, renal insufficiency or known peripheral vascular disease. PAST MEDICAL HISTORY: Remarkable for multiple sclerosis, hypertension, and hypothyroidism. SOCIAL HISTORY: The patient does not function independently in the context of her multiple sclerosis. She is a nonsmoker. FAMILY HISTORY: Mother had a stroke. Her father had chest discomfort, though no documented myocardial infarction. MEDICATIONS: Included aspirin, atorvastatin, baclofen, Symbicort, calcium, fluticasone, gabapentin, ipratropium, levothyroxine, lisinopril, meloxicam, methadone, p.r.n. nitroglycerin as described above. REVIEW OF SYSTEMS: Remarkable for the following positives. NEUROLOGIC: She has a history of multiple sclerosis. ENDOCRINE: She has a history of thyroidectomy and is on thyroid replacement. MUSCULOSKELETAL: She has chronic arthritic complaints. EYES: [place] [address] CONSULTATION Name: ELKE AREVALO Room: [address]#: [id number] Admission: 02/18/18 Attend Phys: Bryson Christianson, Discharge: Date of : 45 Report #: [id number] PHYSICAL EXAMINATION: GENERAL: Reveals a pleasant elderly female, in no acute distress. VITAL SIGNS: Blood pressure is 90/62 this morning; has been labile during her hospitalization. Pulse rate is 78, respirations are 18 per minute. NECK: Jugular venous pressure is normal. Carotids are 1-2+. CHEST: Clear. CARDIAC: Reveals normal first and second heart sounds without murmurs or gallops. ABDOMEN: Soft and nontender. EXTREMITIES: Well perfused without edema with intact femoral, pedal and radial pulses. There are no deforming arthritic changes. IMAGING: Electrocardiogram demonstrates sinus rhythm at a mildly tachycardic rate without ischemic changes. IMPRESSION: 1. Chest pain with radiation through to the back, responsive to nitroglycerin. 2. Hypertension. 3. Multiple sclerosis. 4. Treated hypothyroidism. RECOMMENDATIONS: Given the aforementioned description of the discomfort and its response to nitrates, I would recommend proceeding with Lexiscan Cardiolite testing to rule out significant induced ischemic burden. If that test is remarkable, cardiac catheterization would be indicated. This has been discussed with the patient and we will plan to proceed with Lexiscan Cardiolite testing today. <ELECTRONICALLY SIGNED> By: Lonnie Ludwig MD, FACC 02/21/18 0946 0955 [id number] Ludwig MD, FACC /nt
[2018-02-21 11:55] VITALS: BP 97/39
[2018-02-21 12:21] VITALS: BP 95/48
[2018-02-21 12:48] VITALS: BP 97/39
== END 2018-02-21 14:30 ==
LOC: M.ERS 17:20 → M.TBA-ER 18:43 → M.2W 18:43
PROVIDERS: Emergency Medicine; Internal Medicine; ADMIT Family Medicine
DX: R07.9 Chest pain, unspecified (principal); K22.4 Dyskinesia of esophagus; K21.9 Gastro-esophageal reflux disease without esophagitis; J44.9 Chronic obstructive pulmonary disease, unspecified; G89.4 Chronic pain syndrome; R53.81 Other malaise; N39.0 Urinary tract infection, site not specified; E03.9 Hypothyroidism, unspecified; G62.9 Polyneuropathy, unspecified; F41.9 Anxiety disorder, unspecified; G35 Multiple sclerosis; R41.82 Altered mental status, unspecified; N17.9 Acute kidney failure, unspecified; I10 Essential (primary) hypertension; Z79.82 Long term (current) use of aspirin; Z79.899 Other long term (current) drug therapy

== ENCOUNTER 2018-09-02 10:38 | Inpatient (IN) | payer OTHER ==
[2018-09-02] VITALS (16 sets, daily range): BP systolic 84–120; BP diastolic 37–72
[~2018-09-02] VITALS: Ht 160 cm; Wt 84.6 kg
--- NOTE | ~2018-09-02 | CON ---
[address] [address] CONSULTATION Name: ELKE AREVALO Room: [address] IN M.R.#: [id number] Admission: 09/02/18 Attend Phys: Terry Elder MD Discharge: Date of : 45 Report #: [id number] THIS REPORT FOR: //name// CC: [facility] HISTORY OF PRESENT ILLNESS: The patient is a 72-year-old female who presents with left-sided weakness. Apparently in addition to this weakness, the patient had altered mental status, bilateral lower extremity weakness, left facial droop and slurred speech. The patient was assessed through the Emergency Room and given TPA. As it turns out, this patient has a longstanding history of multiple sclerosis. She is not on any disease modifying therapy at this point. She is followed by Dr. Kenia Galindo at [facility] and in fact just saw Dr. Galindo last week. PAST MEDICAL HISTORY: Multiple sclerosis, hypothyroidism, gastroesophageal reflux, anxiety, chronic pain. PAST SURGICAL HISTORY: Unremarkable. MEDICATIONS: At home, senna daily, methadone 2.5 mg q. 12 hours, Synthroid 88 mcg daily, aspirin 81 mg daily, atorvastatin 10 mg at bedtime, duloxetine 30 mg b.i.d., Flonase daily, lisinopril 10 mg daily, Mobic 7.5 mg daily, gabapentin 900 mg t.i.d., multivitamin daily, Symbicort b.i.d., Detrol 2 mg daily, tramadol 50 mg p.r.n., MiraLax 17 grams daily, baclofen 10 mg b.i.d. ALLERGIES: SULFA, MORPHINE, MEPERIDINE, HYDROCODONE, CLARITHROMYCIN, AMPICILLIN, CODEINE, CHLORPHENIRAMINE and LEVOFLOXACIN. PHYSICAL EXAMINATION: VITAL SIGNS: Temperature 36.8, pulse rate 115, respiratory rate 17, blood pressure 107/68, bedside pulse oximetry 93% on room air. NEUROLOGIC: Cranial nerves 2-12 are grossly intact. The patient appears to have some ptosis of the right eyelid and a right facial droop. Motor exam demonstrates generalized weakness; however, the patient appeared to have decreased fine movements in the left upper extremity. Reflexes are symmetrical throughout. Plantar responses are flexor bilaterally. Coordination demonstrates no evidence of dysmetria. LABORATORY DATA: Hematology: White blood cell count 8.7, hemoglobin 10.3, hematocrit 30.4. Urinalysis: Nitrite positive, 1+ leukocyte esterase. Chemistry: Sodium 144, potassium 4.1, chloride 108, carbon dioxide 28, BUN 18, creatinine 1, GFR 55. IMAGING STUDIES: CT scan of the head [place] [address] CONSULTATION Name: ELKE AREVALO Room: [address] IN [facility]#: [id number] Admission: 09/02/18 Attend Phys: Terry Elder MD Discharge: Date of : 45 Report #: [id number] IMPRESSION: This patient has multiple sclerosis. Her altered mental status was most likely secondary to the urinary tract infection. The patient has received TPA and the stroke protocol is being followed. I have ordered an MRI of the head with and without contrast for Tuesday to see whether this patient actually has had a multiple sclerosis exacerbation rather than a stroke. The patient would probably also benefit from inpatient therapy if she qualifies. Dr. Garcia will be following the patient as of Tuesday. By: 1306 [id number] Sotelo DO /nt
[~2018-09-02 10:38] MED LIST changes: +DETROL2 M1 PO
[2018-09-02 11:03] LABS: HEMATOCRIT 39.3 % (37.0-47.0); HEMOGLOBIN 12.9 gm/dL (12.0-15.0); MCH 26.4 pg (26.0-34.0); MCHC 32.9 g/dL (28.0-37.0); MCV 80.3 fL (80.0-100.0); NUCLEATED RBCS 0 /100WBC; PLATELET COUNT* 172 thou/uL (150-400); RBC 4.89 mil/uL (4.20-5.00); RDW-CV 16.9 % (10.5-14.5); WBC 14.8 thou/uL (4.0-11.0)
[2018-09-02 11:25] LABS: ABSOLUTE LYMPHOCYTES 0.4 thou/uL (0.8-5.3); ABSOLUTE MONOCYTES 1.5 thou/uL (0.0-1.2); ABSOLUTE NEUTROPHILS 12.9 thou/uL (1.6-8.1); ANISOCYTOSIS 1+; PLATELET ESTIMATE ADEQUATE; POIKILOCYTOSIS 1+
--- NOTE | 2018-09-02 11:30 | NUR ---
MULTIPLE ATTEMPTS AT SECOND IV AND LAB DRAWS NO SUCCESS NOTIFIED VERBAL TO START TPA WITHOUT 2ND LINE.
[2018-09-02 11:33] LABS: APTT 27.8 Seconds (25.0-31.3); PROTIME 10.1 Seconds (9.20-11.50)
[2018-09-02 12:21] LABS: ANION GAP 8 mmol/L (7-16); BUN 17 mg/dL (7-18); CALCIUM 9.4 mg/dL (8.5-10.1); CHLORIDE 102 mmol/L (98-107); CO2 29 mmol/L (21-32); CREATININE 1.1 mg/dL (0.6-1.3); GLUCOSE 127 mg/dL (70-99); POTASSIUM 4.2 mmol/L (3.5-5.1); SODIUM 139 mmol/L (136-145)
[2018-09-02 12:30] LABS: ALBUMIN 3.7 g/dL (3.4-5.0); ALKALINE PHOSPHATASE 85 U/L (46-116); SGOT 33 U/L (15-37); SGPT 43 U/L (30-65); TROPONIN-I LEVEL <0.06 ng/mL (<0.06)
--- NOTE | 2018-09-02 12:52 | NUR ---
SEE STROKE FLOW SHEET
--- NOTE | 2018-09-02 15:14 | NUR ---
PATIENT ADMITTED FROM ER ALERT AND ORIENTED FOLLOWS COMMANDS SEE NIH. SWALLOW STUDY REVIEWED BY SPEECH THERAPY ERIN. RECOMENDS REGULAR WITH THIN LIQUIDS. PT CONTINUES TO PROGRESS. RECIEVED CALL FROM LISETTE SHEPPARD. EXPLAINED SITUATION SHE STATES SHE CAN BE CDONFUSED AT TIMES.
--- NOTE | 2018-09-02 23:00 | NUR ---
B/P SOFT, MAP HIGH 50'S TO LOW 60'S, INCREASED LEFT FACIAL DROOP, AND SLURRED SPEECH, SPOKE WITH DR GARCIA VIA TELEPHONE, NEW ORDERS RECEIVED NS 500CC FLUID CHALLANGE, UA, AND BEGIN ROCEPHIN 1GM IV DAILY IF UA POSITIVE, WILL COMMUNICATE ORDERS WITH PATIENT AND CONTINUE TO MONITOR.
[2018-09-02 23:50] LABS: URINE BILIRUBIN NEGATIVE (Negative); URINE BLOOD NEGATIVE (Negative); URINE CLARITY CLEAR; URINE COLOR YELLOW; URINE GLUCOSE-RANDOM NEGATIVE (Negative); URINE KETONES NEGATIVE (Negative); URINE LEUKOCYTES 1+ (Negative); URINE NITRITE POSITIVE (Negative); URINE PROTEIN NEGATIVE (Negative); URINE SPECIFIC GRAVITY <= 1.005 (1.005-1.030); URINE UROBILINOGEN 0.2 E.U./dl (0.2-1.0)
[2018-09-02 23:57] LABS: RENAL EPITHELIAL CELLS 0-3 Few /LPF (None Seen); SQUAMOUS 0-3 Few /LPF (0-3); WBC CLUMPS Moderate (None Seen)
[2018-09-02 23:58] LABS: AMORPHOUS URATES Moderate /LPF (None Seen); BACTERIA >30 Many /HPF (None Seen); CASTS None Seen /LPF (None Seen); MUCUS 0-3 Light strn/LPF (None Seen); URINE RBC 3-10 Few /HPF (0-2); URINE WBC >25 Many /HPF (0-5)
[2018-09-03] VITALS (8 sets, daily range): BP systolic 84–139; BP diastolic 43–65
--- NOTE | 2018-09-03 04:08 | NUR ---
INCREASING CROUP LIKE SOUNDING NON-PRODUCTIVE COUGH, SAO2 REMAINS =>92% ON RA, RESP EVEN AND NONLABORED, LUNGS CLEAR DIMINISHED, DUONEB BREATHING HOME MEDICATION, SPOKE WITH DR GARCIA, NEW ORDERS FOR PORTABLE CHEST XRAY, BNP, AND DUONEB INHALALATION TX [id number] PRN, COMMUNICATED NEW ORDERS WITH PT, WILL INITATE ORDERED AND CONTINUE TO MONITOR.
[2018-09-03 04:09] LABS: ALBUMIN 2.9 g/dL (3.4-5.0); CALCIUM 8.1 mg/dL (8.5-10.1); POTASSIUM 4.1 mmol/L (3.5-5.1); TOTAL PROTEIN 5.2 g/dL (6.4-8.2)
[2018-09-03 04:43] LABS: CHOLESTEROL 109 mg/dL (<200); HDL CHOLESTEROL 48 mg/dL (>40); LDL CHOLESTEROL 49 mg/dL (<100); TC:HDL 2.3 Ratio (Not establshd); TRIGLYCERIDE 64 mg/dL (<150); VLDL 13 mg/dL (<40)
[2018-09-03 04:46] LABS: SERUM ASSESSMENT CLEAR
--- NOTE | 2018-09-03 07:00 | NUR ---
PROGRESSING TOWARDS GOALS, AWAKE AND CONVERSATIVE MOST OF NOC, LEFT SIDED FACIAL DROOP AND SLURRED SPEECH INTERMITTENT. DUONEB BREATHING TX X1 BY RT HELPFUL, PT DENIES SOA OR DIFFICULTY BREATHING, UA POSITIVE FOR UTI, URINE CULTURE PENDING, ROCEPHIN 1MG IV GIVEN VIA INFUSION PUMP, NO ADVERSE EFFECTS FROM IV ABT NOTED, B/P INCREASING THROUGHOUT SHIFT TO NORMOTENSION. TRAMADOL 50MG GIVEN X1 PER PT REQUEST FOR BILAT UPPER EXTREMITY AND GENERALIZED PAIN, TRAMADOL HELPFUL PER PTS VERBALIZATION. AWAKE AND CONVERSATIVE THIS AM. USING CALL LIGHT APPROPRIATELY, SAFETY MAINTAINED.
[2018-09-03 08:05] LABS: ABSOLUTE EOSINOPHILS 0.2 thou/uL (0.0-0.7); ABSOLUTE LYMPHOCYTES 0.9 thou/uL (0.8-5.3); ABSOLUTE MONOCYTES 0.6 thou/uL (0.0-1.2); ABSOLUTE NEUTROPHILS 6.9 thou/uL (1.6-8.1); BASOPHILS 0.1 %; EOSINOPHILS 2.2 %; HEMATOCRIT 30.4 % (37.0-47.0); LYMPHOCYTES 10.4 %; MCH 27.2 pg (26.0-34.0); MCHC 33.7 g/dL (28.0-37.0); MCV 80.5 fL (80.0-100.0); MONOCYTES 7.3 %; MPV 9.3 fl. (7.2-11.1); NUCLEATED RBCS 0 /100WBC; PLATELET COUNT* 124 thou/uL (150-400); RBC 3.78 mil/uL (4.20-5.00); RDW-CV 16.3 % (10.5-14.5); WBC 8.7 thou/uL (4.0-11.0)
[2018-09-03 08:07] LABS: HEMOGLOBIN 10.3 gm/dL (12.0-15.0)
--- NOTE | 2018-09-03 16:05 | NUR ---
PATIENT ALERT AND ORIENTED DENIES DISTRESS REPORT GIVEN TO RUTH RN. TRANSFERED TO RM 202.
--- NOTE | 2018-09-03 16:41 | NUR ---
RECEIVED REPORT FROM LINDA AND ASSUMED CARE OF PT @ 8218.PT IS A/O X4,VSS,TRACING SR ON THE MONITOR.IV PATENT AND SALINE LOCKED.THIS NURSE REVIEWED PREVIOUS NURSE CHARTING AND AGREES WITH ASSESSMENT.PT IS CALM AND COOPERATIVE WITH C/O PAIN IN LEGS AND ARMS.PT LEFT RESTING IN BED WITH CALL LIGHT AND FALL PRECAUTIONS IN PLACE.HOURLY ROUNDING COMPLETED FOR PT SAFETY.WILL CONTINUE TO MONITOR FOR DURATION OF SHIFT.
[2018-09-04] VITALS: BP 125/67
[2018-09-04 03:09] LABS: GLYCOHEMOGLOBIN (HGB A1C) 5.4 % (4.8-5.6)
[2018-09-04 04:00] VITALS: BP 121/62
[2018-09-04 04:15] LABS: ABSOLUTE EOSINOPHILS 0.4 thou/uL (0.0-0.7); ABSOLUTE LYMPHOCYTES 1.4 thou/uL (0.8-5.3); ABSOLUTE MONOCYTES 0.6 thou/uL (0.0-1.2); ABSOLUTE NEUTROPHILS 4.2 thou/uL (1.6-8.1); BASOPHILS 0.4 %; HEMATOCRIT 32.5 % (37.0-47.0); HEMOGLOBIN 10.8 gm/dL (12.0-15.0); LYMPHOCYTES 21.3 %; MCH 26.9 pg (26.0-34.0); MCHC 33.1 g/dL (28.0-37.0); MCV 81.3 fL (80.0-100.0); MONOCYTES 9.4 %; MPV 9.9 fl. (7.2-11.1); NUCLEATED RBCS 0 /100WBC; PLATELET COUNT* 130 thou/uL (150-400); POLYS 62.9 %; RDW-CV 16.2 % (10.5-14.5); WBC 6.7 thou/uL (4.0-11.0)
[2018-09-04 04:51] LABS: ALBUMIN 2.7 g/dL (3.4-5.0); CALCIUM 8.7 mg/dL (8.5-10.1); CREATININE 0.9 mg/dL (0.6-1.3); POTASSIUM 4.2 mmol/L (3.5-5.1); TOTAL BILIRUBIN 0.5 mg/dL (<0.1-1.0); TOTAL PROTEIN 5.7 g/dL (6.4-8.2)
--- NOTE | 2018-09-04 05:48 | NUR ---
PT CARE ASSUMED AT 1930. SAT MAINTAINED IN RA. ALERT AND ORIENTED X4. CALL IGHT WITHIN REACH AD BED IN LOW POSITION. PT IS INCONTINENT OF B/B. HOURY ROUNDING DONE FOR PT SAFETY.
[2018-09-04 08:00] VITALS: BP 133/52
--- NOTE | 2018-09-04 10:23 | NUR ---
SENIOR DIGITAL DESIGNER INFORMED OF THE NEED TO SEND A SKILLED REFERRAL TO THE PATIENT'S LTC FACILITY [facility]. D/C IMAGING SYSTEM ADMINISTRATOR FAXED PATIENT'S FACESHEET, CLINCAL INFO AND PT NOTE TO NATALIO. NO OT NOTE AVAILABLE AT THIS TIME. D/C IMAGING SYSTEM ADMINISTRATOR WTO FAX OT NOTE WHEN AVAILABLE. CM WILL REMAIN AVAILABLE TO ASSIST AND FOLLOW N NATALIO PHONE: [phone] FAX: [phone]
--- NOTE | 2018-09-04 10:26 | NUR ---
Pt is A&O. Resides at [facility], plans to return there at ct. Pt is wc bound, able to assist with own transfers. Pt states that she wears o2 PRN. Neuro to see. Pt will likely need skilled at ct, [place] menu planner to fax skilled referral to [facility]. Following.
--- NOTE | 2018-09-04 10:45 | NUR ---
ASSUMED PT CARE REPORT RECEIVED FROM NURSE. PT IS AOX4, TRACING SR ON ASSEMBLER CLIP ON SUNGLASSES. PT IS ON RA. O2 SATURATION IS 93%. VSS. LUNG SOUND CLEAR. PT WENT DOWN FOR MRI AT 1000 THIS AM. PT ABLE TO TAKE PILLS WHOLE IN APPLE SAUCE. MEDICATION ADMINISTERED ORDERED. WILL CONTINUE TO MONITOR
[2018-09-04 11:40] VITALS: BP 142/71
--- NOTE | 2018-09-04 12:20 | EKG ---
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
--- NOTE | 2018-09-04 14:57 | NUR ---
NEW MRA ORDERED. PT LEFT FOR MRA AT 1445.
--- NOTE | 2018-09-04 17:00 | 2DMMODE ---
[place] [address] 2 D/M-MODE ECHOCARDIOGRAM Name: ELKE AREVALO Room: [address] IN [facility]#: [id number] Admission: 09/02/18 Attend Phys: Terry Elder, Discharge: Date of : 45 Date of Service: 09/04/18 1700 Report #: [id number] THIS REPORT FOR: //name// APPROVED REPORT Study performed: 09/04/2018 11:49:16 EXAM: Comprehensive 2D, Doppler, and color-flow Echocardiogram Patient Location: In-Patient Room #: [facility] Status: routine BSA: 1.90 HR: 87 bpm BP: 133/52 mmHg Rhythm: NSR Other Information Study Quality: Good Indications CVA/TIA Echo Enhancing Agent Indication: Rule out Shunt Agent(s) / Amount(s) Used: Agitated Saline 10 cc 2D Dimensions IVSd: 10.39 (7-11mm) LVOT Diam: 19.87 (18-24mm) LVDd: 40.73 mm PWd: 9.08 (7-11mm) Ascending Ao: 32.54 (22-36mm) LVDs: 25.89 (25-40mm) Aortic Root: 30.86 mm Volumes Left Atrial Volume (Systole) LA ESV Index: 22.00 mL/m2 Aortic Valve AoV Peak Bruno.: 1.12 m/s AO Peak Gr.: 4.98 mmHg LVOT Max P.33 mmHg AO Mean Gr.: 2.97 mmHg LVOT Mean P.44 mmHg LVOT Max V: 0.91 m/s AO V2 VTI: 22.09 cm LVOT Mean V: 0.54 m/s KAREN (VTI): 2.51 cm2 LVOT V1 VTI: 17.90 [place] [address] 2 D/M-MODE ECHOCARDIOGRAM Name: ELKE AREVALO Room: [address] IN [facility]#: [id number] Admission: 09/02/18 Attend Phys: Terry Elder, Discharge: Date of : 45 Date of Service: 09/04/18 1700 Report #: [id number] Mitral Valve E/A Ratio: 0.77 MV Decel. Time: 178.19 ms MV E Max Bruno.: 0.90 m/s MV PHT: 51.67 ms MVA (PHT): 4.26 cm2 TDI E/Lateral E': 12.86 E/Medial E': 10.00 Medial E' Bruno.: 0.09 m/s Lateral E' Bruno.: 0.07 m/s Pulmonary Valve PV Peak Bruno.: 0.73 m/s PV Peak Gr.: 2.12 mmHg Tricuspid Valve RAP Estimate: 5.00 mmHg TR Peak Gr.: 25.88 mmHg RVSP: 31.00 mmHg PA Pressure: 31.00 mmHg Left Ventricle The left ventricle is normal size. There is normal LV segmental wall motion. There is normal left ventricular wall thickness. Left ventricular systolic function is normal. The left ventricular ejection fraction is within the normal range. LVEF is 60%. Grade I - abnormal relaxation pattern. Right Ventricle The right ventricle is normal size. The right ventricular systolic function is normal. Atria The left atrium size is normal. Interatrial septum is intact without evidence of ASD or PFO. The right atrium size is normal. Aortic Valve Mild aortic valve sclerosis. No aortic regurgitation is present. There is no aortic valvular stenosis. Mitral Valve Moderate mitral annular calcification. Mild mitral regurgitation. No evidence of mitral valve stenosis. Tricuspid Valve The tricuspid valve is normal in structure. Trace tricuspid regurgitation. Mild [place] [address] 2 D/M-MODE ECHOCARDIOGRAM Name: ELKE AREVALO Room: [address] IN [facility]#: [id number] Admission: 09/02/18 Attend Phys: Terry Elder, Discharge: Date of : 45 Date of Service: 09/04/18 1700 Report #: [id number] Pulmonic Valve The pulmonary valve is normal in structure. There is no pulmonic valvular regurgitation. Great Vessels The aortic root is normal in size. IVC is not well visualized. Pericardium There is no pericardial effusion. <Conclusion> The left ventricle is normal size. There is normal left ventricular wall thickness. Left ventricular systolic function is normal. The left ventricular ejection fraction is within the normal range. LVEF is 60%. Grade I - abnormal relaxation pattern. The right ventricle is normal size. The left atrium size is normal. Mild aortic valve sclerosis. No aortic regurgitation is present. There is no aortic valvular stenosis. Moderate mitral annular calcification. Mild mitral regurgitation. No evidence of mitral valve stenosis. The tricuspid valve is normal in structure. There is no pericardial effusion. There is normal LV segmental wall motion. Interatrial septum is intact without evidence of ASD or PFO. <ELECTRONICALLY SIGNED> By: Lonnie Ludwig MD, FACC 09/04/181699 99 99 Lonnie Ludwig MD, FACC /INF
[2018-09-04 19:40] VITALS: BP 142/63
[2018-09-05] VITALS (7 sets, daily range): BP systolic 104–139; BP diastolic 56–76
--- NOTE | 2018-09-05 06:57 | NUR ---
PT CARE ASSUMED AT 1930. SAT MAINTAINED IN RA. ALERT AND ORIENTED X4. CALL LIGHT WITHIN REACH AND BED IN LOW POSITION. INCONTINENT OF B/B. C/O PAIN, MEDICATION GIVEN PER EMAR. HOURLY ROUNDING DONE FOR PT SAFETY.
--- NOTE | 2018-09-05 12:36 | NUR ---
CM spoke with Siobhan at [facility], informed of potential dc back to [facility] tomorrow, CM asked Siobhan to initiate insurance auth for skilled. Faxed updated therapy evals/notes.
--- NOTE | 2018-09-05 12:52 | NUR ---
ASSUMED PT CARE REPORT RECEIVED FROM NURSE. PT IS AOX4, TRACING SR ON TANK ERECTOR. PT IS ON RA. O2 SATURATION IS 92%. PT GOT UP FROM BED TO CHAIR WITH STAFF HELP AND A WALKER. PT HAS GOOD APPETITE AND CONSUMED ALL MEAL. VSS. MEDICATION GIVEN ORDERED. PT HAD A BOWEL MOVEMENT DURING THE DAY. PT IS INCONTENENT AND WET BED VERY FREQUENTLY. NO COMPLAINT. PT WORKED WITH PT TODAY. WILL CONTINUE TO MONITOR PT
[2018-09-06 04:00] VITALS: BP 93/62
[2018-09-06 08:34] VITALS: BP 121/46
--- NOTE | 2018-09-06 09:48 | NUR ---
RECEIVED REPORT FROM ELIAZAR AND ASSUMED CARE OF PT @ 2535.PT IS A/O X4,VSS,TRACING SR ON THE MONITOR.IV PATENT AND SALINE LOCKED.PT IS CALM AND COOPERATIVE WITH C/O GENERALIZED PAIN IN LEGS AND ARMS-MEDICATIONS GIVEN.PT WORKED WITH OT THIS AM AND WAS LEFT SITTING IN THE CHAIR WITH CALL LIGHT AND FALL PRECAUTIONS IN PLACE.WILL CONTINUE TO MONITOR.
[2018-09-06 11:20] VITALS: BP 121/46
[2018-09-06] MEDS ORDERED: CEFUROXIME500 MG PO (11:30)
--- NOTE | 2018-09-06 11:37 | NUR ---
Pt discharging back to [facility] today. Faxed dc orders. Chart copied. Nurse report number is [id number]. Updated Pt's friend/DPOA, Belkis. Red Letter to case picker and transport around 215pm.
[2018-09-06 11:47] VITALS: BP 116/59
[2018-09-06] MEDS ORDERED: MACROBID 100 M100 M2 PO (12:57)
--- NOTE | 2018-09-06 14:43 | NUR ---
PT OK FOR DISCHARGE.DISCHARGE PAPERWORK COMPLETED AND GIVEN TO THE PT.COPY OF CHART COPIED AND SENT WITH PT.IV REMOVED.HEART MONITOR REMOVED AND RETURNED TO THE NURSING STATION.NIH COMPLETED.ALL PERSONAL BELINGINGS PACKED AND TAKEN WITH THE PT.REPORT CALLED TO [facility].PT TRANSPORTED BY WHEELCHAIR VAN.
== END 2018-09-06 14:47 | DRG 871 ==
LOC: M.ERS 10:38 → M.TBA-ER 12:07 → M.ICU 12:07 → M.2W 12:07 → M.ICU 12:55 → M.2W 09-03 16:17
PROVIDERS: Emergency Medicine Emergency Medical Services; ADMIT Internal Medicine
DX: A41.9 Sepsis, unspecified organism (principal); G93.41 Metabolic encephalopathy; N39.0 Urinary tract infection, site not specified; G35 Multiple sclerosis; G89.29 Other chronic pain; F41.9 Anxiety disorder, unspecified; K21.9 Gastro-esophageal reflux disease without esophagitis; J44.9 Chronic obstructive pulmonary disease, unspecified; E03.9 Hypothyroidism, unspecified; I95.9 Hypotension, unspecified; Z88.1 Allergy status to other antibiotic agents; Z88.2 Allergy status to sulfonamides; Z88.8 Allergy status to other drugs, medicaments and biological substances; Z88.5 Allergy status to narcotic agent; Z79.82 Long term (current) use of aspirin; Z79.899 Other long term (current) drug therapy; Z79.1 Long term (current) use of non-steroidal anti-inflammatories (NSAID)

== ENCOUNTER 2018-09-20 16:17 | Observation (INO) | payer OTHER ==
[~2018-09-20] VITALS: Ht 160 cm; Wt 88.0 kg
[~2018-09-20 16:17] MED LIST changes: +CEFUROXIME500 MG PO; -DOLOPHINE HCL5 MG PO; +MACROBID 100 M100 M2 PO
[2018-09-20 16:18] VITALS: BP 119/50
[2018-09-20] MEDS ORDERED: MOBIC7.5 MG PO (16:28)
[2018-09-20] MEDS ORDERED: REFRESH CLASSI1 EACH OPHTHALMIC (16:28)
[2018-09-20] MEDS ORDERED: DIPHENHIST50 MG PO (16:28)
[2018-09-20] MEDS ORDERED: OXYBUTYNIN 5 MG5 M2 PO (16:28)
[2018-09-20] MEDS ORDERED: VOLTAREN GEL 1100 G2 TOP (16:29)
[2018-09-20] MEDS ORDERED: [UNRECOGNIZED DRUG - OTHER] TOP (16:29)
[2018-09-20] MEDS ORDERED: TRAVATAN Z2.5 ML OPHTHALMIC (16:30)
[2018-09-20] MEDS ORDERED: BIOFREEZE118 ML TOP (16:30)
[2018-09-20] MEDS ORDERED: ATROVENT HFA14 GM INH (16:31)
[2018-09-20] MEDS ORDERED: VITAMIN D3400 UNIT PO (16:31)
[2018-09-20] MEDS ORDERED: ARTIFICIAL TEA1 EACH OPHTHALMIC (16:32)
[2018-09-20] MEDS ORDERED: DOLOPHINE HCL5 MG PO (16:32)
[2018-09-20 16:56] LABS: ABSOLUTE EOSINOPHILS 0.3 thou/uL (0.0-0.7); ABSOLUTE LYMPHOCYTES 1.6 thou/uL (0.8-5.3); ABSOLUTE MONOCYTES 0.5 thou/uL (0.0-1.2); ABSOLUTE NEUTROPHILS 3.4 thou/uL (1.6-8.1); BASOPHILS 0.6 %; HEMATOCRIT 36.9 % (37.0-47.0); HEMOGLOBIN 12.2 gm/dL (12.0-15.0); LYMPHOCYTES 27.8 %; MCH 27.1 pg (26.0-34.0); MCHC 33.2 g/dL (28.0-37.0); MCV 81.7 fL (80.0-100.0); MONOCYTES 8.1 %; MPV 9.4 fl. (7.2-11.1); NUCLEATED RBCS 0 /100WBC; PLATELET COUNT* 229 thou/uL (150-400); POLYS 58.5 %; RBC 4.52 mil/uL (4.20-5.00); RDW-CV 16.6 % (10.5-14.5); WBC 5.9 thou/uL (4.0-11.0)
[2018-09-20 17:05] LABS: ANION GAP 7 mmol/L (7-16); BUN 21 mg/dL (7-18); CALCIUM 9.5 mg/dL (8.5-10.1); CHLORIDE 106 mmol/L (98-107); CO2 30 mmol/L (21-32); CREATININE 1.1 mg/dL (0.6-1.3); GLUCOSE 77 mg/dL (70-99); POTASSIUM 4.6 mmol/L (3.5-5.1); SODIUM 143 mmol/L (136-145)
[2018-09-20 17:11] LABS: BE 0.2 mmol/L (-2 to +3); PCO2 42.4 mmHg (35.0-45.0); PO2 82.7 mmHg (75.0-100.0); pH 7.392 (7.340-7.450)
[2018-09-20 17:16] LABS: ALBUMIN 3.5 g/dL (3.4-5.0); ALKALINE PHOSPHATASE 72 U/L (46-116); LIPASE 69 U/L (73-393); NT-PRO BRAIN NAT PEPTIDE 106 pg/mL (<300); SGOT 23 U/L (15-37); SGPT 34 U/L (30-65); TOTAL BILIRUBIN 0.4 mg/dL (<0.1-1.0); TOTAL PROTEIN 6.7 g/dL (6.4-8.2); TROPONIN-I LEVEL <0.06 ng/mL (<0.06)
[2018-09-20 18:58] VITALS: BP 136/67
[2018-09-20 19:30] VITALS: BP 135/52
--- NOTE | 2018-09-20 19:30 | NUR ---
RECEIVED REPORT AND ASSUMED CARE OF PT, SEE ADMISSION ASSESSNENT AND HX. NO SKIN BREAKDOWN NOTED. PT ALERT & ORIENTED X4, ABLE TO ANSWER ALL QUESTIONS. TELEMETRY APPLIED AND SHOWING SR. WILL CONT TO MONITOR AND ASSIST NEEDED.
[2018-09-20 20:05] LABS: URINE BILIRUBIN NEGATIVE (Negative); URINE BLOOD NEGATIVE (Negative); URINE CLARITY CLEAR; URINE COLOR YELLOW; URINE GLUCOSE-RANDOM NEGATIVE (Negative); URINE KETONES NEGATIVE (Negative); URINE LEUKOCYTES-REFLEX NEGATIVE (Negative); URINE NITRITE-REFLEX NEGATIVE (Negative); URINE PROTEIN NEGATIVE (Negative); URINE SPECIFIC GRAVITY 1.015 (1.005-1.030); URINE UROBILINOGEN 0.2 E.U./dl (0.2-1.0)
[2018-09-20 20:24] LABS: AMP/METHAMP Negative (Negative); BARBITURATES Negative (Negative); BENZODIAZEPINES Negative (Negative); COCAINE Negative (Negative); METHADONE Negative (Negative); OPIATES Negative (Negative); PCP Negative (Negative); THC Negative (Negative)
[2018-09-21] VITALS: BP 100/45
[2018-09-21 04:00] VITALS: BP 110/66
[2018-09-21 05:07] LABS: HEMATOCRIT 31.8 % (37.0-47.0); HEMOGLOBIN 10.7 gm/dL (12.0-15.0); MCH 27.7 pg (26.0-34.0); MCHC 33.6 g/dL (28.0-37.0); MCV 82.3 fL (80.0-100.0); RBC 3.86 mil/uL (4.20-5.00); RDW-CV 16.2 % (10.5-14.5)
[2018-09-21 05:29] LABS: CALCIUM 8.5 mg/dL (8.5-10.1); MAGNESIUM 1.6 mg/dL (1.8-2.4); POTASSIUM 4.4 mmol/L (3.5-5.1)
--- NOTE | 2018-09-21 05:56 | NUR ---
AWAKE OCC DURING NIGHT. CONT TO BE ORIENTED X4. ABLE TO VOID PER BEDPAN. NO COMPLAINTS VOICED. TELEMETRY CONT TO SHOW SR. HS GOALS OF REST AND SAFETY ACHIEVED. HOURLY ROUNDING OBSERVED.
[2018-09-21 08:29] VITALS: BP 134/68
--- NOTE | 2018-09-21 08:33 | NUR ---
Pt asleep when CM went to assess, will f/u later
--- NOTE | 2018-09-21 08:40 | NUR ---
ASSUMED CARE AFTER REPORT. [employer], [facility]. ABLE TO COMMUNICATE BASIC NEEDS. TRADE FACILITATOR IN PLACE, SR [address] BLOCK. O2 SAT 99% RA. CALL LIGHT WITHIN REACH. HOURLY ROUNDING FOR SAFETY AND PATIENT NEEDS.
--- NOTE | 2018-09-21 09:59 | NUR ---
Pt is A&O. Resides at [facility], known to this CM from previous hospital stays. Recently dc mid August to [facility] with skilled. Pt wc bound, assists with transfers. O2 PRN. Pt's friend, Belkis, is her DPOA. Goal is to return to [facility] at de. Following.
[2018-09-21 11:23] VITALS: BP 134/68
--- NOTE | 2018-09-21 12:07 | EKG ---
[place] [address] ELECTROCARDIOGRAM REPORT Name: ELKE AREVALO Taina [address] [id number] Admission: 09/20/18 Attend Phys: Hadley Morfin MD Discharge: Date of : 45 Report #: [id number] THIS REPORT FOR: //name// [facility] ED Test Date: 2018-09-20 Test Time: 16:38:23 Pat Name: ELKE AREVALO Department: Room: [facility] Gender: F Python Web Developer: : 1945 Requested By: Abelardo Mike Order Number: [id number] MD: Lonnie Ludwig Measurements Intervals [place]ap Rate: 89 P: 49 ID: 199 QRS: 18 QRSD: 99 T: 27 QT: 373 QTc: 454 Interpretive Statements Sinus rhythm Low voltage, precordial leads Baseline wander in lead(s) V5 Compared to ECG 09/02/2018 11:31:26 Low QRS voltage now present Sinus tachycardia no longer present Electronically Signed On 09-21-2018 12:06:52 CDT by Lonnie Ludwig [email or web address] <ELECTRONICALLY SIGNED> By: Lonnie Ludwig MD, [facility] 09/21/18 1206 1638 1638 Lonnie Ludwig MD, [facility] /EPI
--- NOTE | 2018-09-21 13:24 | NUR ---
MANAGER SAFE INFORMED THAT THE PATIENT WOULD D/C BACK TO [facility] TODAY AND WOULD NEED WHEELCHAIR VAN TRANSPORT WITH [facility]. D/C LUNCHROOM AIDE FAXED PATIENT'S D/C ORDERS TO [facility]. D/C LUNCHROOM AIDE SPOKE TO [facility]SP[facility] AND ARRANGED TRANSPORT FOR 1600. D/C LUNCHROOM AIDE INFORMED THE RN IN-CHARGE OF THE PATIENT OF THE PATIENT'S TIME OF TRANSPORT AND WHERE TO CALL REPORT. RN IN AGREEMENT. CM WILL REMAIN AVAILABLE TO ASSIST AND FOLLOW NEEDED. [facility] PHONE: [phone] [facility] TRANSPORTATION PHONE: [phone]
--- NOTE | 2018-09-21 15:45 | NUR ---
PAGED DR. MOROCHO TO CLARIFY DC MEDICATION ORDERS. OK FOR PATIENT TO CONTINUE HOME MEDS WITH EXCEPTION OF GABAPENTIN AND METHADONE. PATIENT WILL CONTINUE GABAPENTIN AT 300 MG TID AND METHADONE AT 2.5 MG BID. DC MED LIST CORRECTION MADE WITH METHADONE STOP ORDER NOTED TO CONTINUE AT 2.5 MG BID DOSE.
--- NOTE | 2018-09-21 16:00 | NUR ---
PATIENT WITH COMPLETE DC ORDER. ORDERS PROCESSED AND COPY OF DC INSTRUCTIONS AND MED LIST INCLUDED IN COPIED CHART FOR TRANSPORTER TO DELIVER TO SNF. REPORT CALLED TO MARCIO AT [facility]. PATIENT'S IV DISCONTINUED AND CO FOUNDER AND CHIEF STRATEGY OFFICER REMOVED, CLEANED AND RETURNED TO POCKET 218. PATIENT IN POSSESSION OF ALL BELONGINGS. PATIENT LEFT UNIT VIA WC WITH TRANPORTER AND WILL BE TAKEN TO [facility] VIA WC VAN.
[2018-09-21] MEDS ORDERED: DOLOPHINE HCL5 MG PO (20:54)
== END 2018-09-21 16:22 ==
LOC: M.ERS 16:17 → M.TBA-ER 17:56 → M.2W 17:56
PROVIDERS: Emergency Medicine; ADMIT Internal Medicine
DX: G92 Toxic encephalopathy (principal); T40.605A Adverse effect of unspecified narcotics, initial encounter; Y92.89 Other specified places as the place of occurrence of the external cause; G35 Multiple sclerosis; G81.94 Hemiplegia, unspecified affecting left nondominant side; R13.10 Dysphagia, unspecified; F41.1 Generalized anxiety disorder; E03.9 Hypothyroidism, unspecified; K22.4 Dyskinesia of esophagus; F19.10 Other psychoactive substance abuse, uncomplicated; R41.82 Altered mental status, unspecified; Z79.82 Long term (current) use of aspirin; Z79.899 Other long term (current) drug therapy

== ENCOUNTER 2018-11-22 04:38 | Inpatient (IN) | payer OTHER ==
[~2018-11-22] VITALS: Ht 160 cm; Wt 85.3 kg
[~2018-11-22 04:38] MED LIST changes: +ARTIFICIAL TEA1 EACH OPHTHALMIC; +ATROVENT HFA14 GM INH; +BIOFREEZE118 ML TOP; +DIPHENHIST50 MG PO; +DOLOPHINE HCL5 MG PO; +OXYBUTYNIN 5 MG5 M2 PO; +REFRESH CLASSI1 EACH OPHTHALMIC; +TRAVATAN Z2.5 ML OPHTHALMIC; +VITAMIN D3400 UNIT PO; +VOLTAREN GEL 1100 G2 TOP; +[UNRECOGNIZED DRUG - OTHER] TOP
[2018-11-22 04:50] VITALS: BP 126/70
[2018-11-22] MEDS ORDERED: BAYER CHEWABLE81 MG PO (05:30)
[2018-11-22] MEDS ORDERED: CAL-GEST200 MG PO (05:30)
[2018-11-22] MEDS ORDERED: ARTIFICIAL TEA1 EACH OPHTHALMIC (05:30)
[2018-11-22] MEDS ORDERED: [UNRECOGNIZED DRUG - OTHER] (05:31)
[2018-11-22] MEDS ORDERED: COPAXONE40 MG/1 ML INJECTION (05:31)
[2018-11-22 05:42] LABS: ALBUMIN 3.4 g/dL (3.4-5.0); CALCIUM 9.1 mg/dL (8.5-10.1); POTASSIUM 4.4 mmol/L (3.5-5.1); TOTAL BILIRUBIN 0.3 mg/dL (<0.1-1.0); TOTAL PROTEIN 6.3 g/dL (6.4-8.2)
[2018-11-22 05:43] LABS: ABSOLUTE EOSINOPHILS 0.4 thou/uL (0.0-0.7); ABSOLUTE MONOCYTES 0.6 thou/uL (0.0-1.2); ABSOLUTE NEUTROPHILS 3.7 thou/uL (1.6-8.1); BASOPHILS 0.6 %; EOSINOPHILS 6.6 %; HEMATOCRIT 39.3 % (37.0-47.0); HEMOGLOBIN 13.2 gm/dL (12.0-15.0); LYMPHOCYTES 29.2 %; MCH 28.7 pg (26.0-34.0); MCHC 33.5 g/dL (28.0-37.0); MCV 85.5 fL (80.0-100.0); MONOCYTES 8.4 %; MPV 10.1 fl. (7.2-11.1); NUCLEATED RBCS 0 /100WBC; PLATELET COUNT* 175 thou/uL (150-400); POLYS 55.2 %; RDW-CV 16.4 % (10.5-14.5); WBC 6.8 thou/uL (4.0-11.0)
[2018-11-22 05:47] LABS: PROTIME 10.3 Seconds (9.20-11.50)
[2018-11-22 06:56] LABS: URINE BILIRUBIN NEGATIVE (Negative); URINE BLOOD NEGATIVE (Negative); URINE CLARITY CLEAR; URINE COLOR YELLOW; URINE GLUCOSE-RANDOM NEGATIVE (Negative); URINE KETONES NEGATIVE (Negative); URINE LEUKOCYTES NEGATIVE (Negative); URINE NITRITE NEGATIVE (Negative); URINE PROTEIN NEGATIVE (Negative); URINE SPECIFIC GRAVITY <= 1.005 (1.005-1.030); URINE UROBILINOGEN 0.2 E.U./dl (0.2-1.0)
[2018-11-22 08:26] VITALS: BP 113/80
[2018-11-22 09:10] VITALS: BP 131/67
--- NOTE | 2018-11-22 10:36 | EKG ---
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 : 1945 Requested By: Eryn Reno Order Number: [id number] MD: North Mcneal Measurements Intervals Chancellor Rate: 86 P: 49 NJ: 214 QRS: 35 QRSD: 96 T: 11 QT: 391 QTc: 468 Interpretive Statements Sinus rhythm septal q waves Borderline prolonged NJ interval Low voltage, precordial leads Compared to ECG 09/20/2018 16:38:23 No significant changes Electronically Signed On 11-22-2018 10:36:28 CDT by North Mcneal [email or web address] <ELECTRONICALLY SIGNED> By: North Mcneal MD, [facility] 11/22/18 1036 5 5 North Mcneal MD, [facility] /EPI
[2018-11-22 11:48] VITALS: BP 150/67
[2018-11-22 16:00] VITALS: BP 150/80
[2018-11-22 20:00] VITALS: BP 112/51
[2018-11-23] VITALS: BP 112/51
[2018-11-23 02:06] LABS: GLYCOHEMOGLOBIN (HGB A1C) 5.5 % (4.8-5.6)
[2018-11-23 04:00] VITALS: BP 137/56
[2018-11-23 04:58] LABS: CHOLESTEROL 143 mg/dL (<200); HDL CHOLESTEROL 54 mg/dL (>40); LDL CHOLESTEROL 71 mg/dL (<100); TC:HDL 2.6 Ratio (Not establshd); TRIGLYCERIDE 93 mg/dL (<150); VLDL 19 mg/dL (<40)
[2018-11-23 05:00] LABS: SERUM ASSESSMENT CLEAR
[2018-11-23 08:00] VITALS: BP 145/80
[2018-11-23 12:00] VITALS: BP 145/80
[2018-11-23] MEDS ORDERED: DOLOPHINE HCL5 MG PO (12:53)
--- NOTE | 2018-11-24 09:32 | EEG ---
[address] [address] EEG STUDY REPORT Name: ELKE AREVALO Room: [address] IN ..#: [id number] Admission: 11/22/18 Attend Phys: Hadley Morfin MD Discharge: 11/23/18 Date of : 45 Report #: [id number] THIS REPORT FOR: //name// CC: Hadley Rincon DATE OF SERVICE: 11/22/2018 This patient is being admitted with an episode of syncope and question of seizure activity. EEG is being done to evaluate the possibility of seizure. EEG was done by placing the electrodes by standard 10-20 system of electrode placement. Both referential and sequential montages were used for recording. Background activity in this patient's EEG is about 8-9 Hz and 30 microvolt. The patient became drowsy and that is associated with bilateral slowing and vertex sharp waves. Photic stimulation is unremarkable. Throughout the record, no active epileptiform activity was noticed. IMPRESSION: This patient's EEG demonstrates no active epileptiform activity. It is somewhat intermixed with theta range slowing on both sides and that is a nonspecific abnormality. Thank you very much for this referral. <ELECTRONICALLY SIGNED> By: Antwon Mendoza MD 11/24/18 0932 1611 [id number] m Mendoza MD /nt
--- NOTE | 2018-11-24 09:32 | CON ---
[address] [address] CONSULTATION Name: ELKE AREVALO Room: [address] IN M.R.#: [id number] Admission: 11/22/18 Attend Phys: Hadley Morfin MD Discharge: 11/23/18 Date of : 45 Report #: [id number] THIS REPORT FOR: //name// CC: Hadley Rincon DATE OF SERVICE: 11/22/2018 HISTORY OF PRESENT ILLNESS: This is a 73-year-old female patient who was seen by me for what looks like a pretty unusual episode. She lives in a snf. She has a longstanding history of multiple sclerosis. She follows up with Dr. Galindo, at [facility] for that. She had tremor and spasms. She takes baclofen for that. It is very difficult to tell what happened she had some tremor yesterday she had some left-sided weakness. I talked to the Emergency Room physician and it does not look like there was any prominent deficit when she was seen there and the deficit was mild and it was tough to tell how much was new and how much was old. She said she had seizure-like activities in the past, but it is not clear whether they were real seizure or not. REVIEW OF SYSTEMS: Positive for MS. She had an MRI here, which document MS. She has a history of neuropathy, problem with esophagus, chronic pain syndrome, acute injury to the kidney. A 14-point review of system was carried out and was positive for above. PAST MEDICAL HISTORY: Positive for MS. FAMILY HISTORY: Unremarkable. SOCIAL HISTORY: The patient does not drink alcohol. PHYSICAL EXAMINATION: Indicates she is alert. She is responsive. She can follow simple commands. She tells me what month it is. Her speech looks intact. Cranial nerve examination appears mostly unremarkable. She is weak in the lower extremities. She says she cannot appreciate the position sense in the lower extremities and reflexes appear to be diminished. Her last vitamin D was normal. She did have a CTA of the head, which shows some blockage in the left side of the vessel. IMPRESSION: Difficult to tell if the patient had some seizures. She is on gabapentin 900 mg t.i.d., which is a good antiepileptic dose. Although the patient take it for pain. I will be inclined not to do anything in this patient at the moment. We might increase the dose of gabapentin. Officially 1700 mg is the approved dose, but we can easily go higher than that. She [place] [address] CONSULTATION Name: ELKE AREVALO Room: [address]#: [id number] Admission: 11/22/18 Attend Phys: Hadley Morfin MD Discharge: 11/23/18 Date of : 45 Report #: [id number] because of the carotid stenosis. I will suggest statin and aspirin in this patient. We will monitor her heart and get an EEG done and I think she should follow up with Dr. Galindo as soon as she can because looks like he wants every treatment to be approved by Dr. Galindo and we will let her follow up there. <ELECTRONICALLY SIGNED> By: Antwon Mendoza MD 11/24/18 0932 1254 [id number] Mendoza MD /nt
== END 2018-11-23 13:35 | DRG 92 ==
LOC: M.ERS 04:38 → M.2W 07:21 → M.TBA-ER 07:21 → M.2W 08:53
PROVIDERS: Emergency Medicine; Internal Medicine; ADMIT Internal Medicine
DX: G92 Toxic encephalopathy (principal); G45.9 Transient cerebral ischemic attack, unspecified; G89.29 Other chronic pain; G62.9 Polyneuropathy, unspecified; G35 Multiple sclerosis; J44.9 Chronic obstructive pulmonary disease, unspecified; F41.9 Anxiety disorder, unspecified; E03.9 Hypothyroidism, unspecified; Z88.6 Allergy status to analgesic agent; Z88.1 Allergy status to other antibiotic agents; Z88.2 Allergy status to sulfonamides; Z88.8 Allergy status to other drugs, medicaments and biological substances; Z79.891 Long term (current) use of opiate analgesic; Z79.82 Long term (current) use of aspirin; Z79.899 Other long term (current) drug therapy

== ENCOUNTER 2018-11-26 19:01 | Inpatient (IN) | payer OTHER ==
[~2018-11-26] VITALS: Ht 162.6 cm; Wt 85.9 kg
--- NOTE | ~2018-11-26 | PROC ---
[address] [address] PROCEDURE REPORT Name: ELKE AREVALO Room: [address] IN .R.#: [id number] Admission: 11/26/18 Attend Phys: Cassandra lópez [place] Discharge: Date of : 45 Report #: [id number] THIS REPORT FOR: //name// For GI report, please see the Provation report in Perceptive 7 content. By: 1547Medical Records Staff KATHY /PERCY
--- NOTE | ~2018-11-26 | PROC ---
[address] [address] PROCEDURE REPORT Name: ELKE AREVALO Room: [address] IN M.R.#: [id number] Admission: 11/26/18 Attend Phys: Cassandra lópez [place] Discharge: Date of : 45 Report #: [id number] THIS REPORT FOR: //name// For GI report, please see the Provation report in Perceptive 7 content. By: [address] [place], [place] [address]cal Records Staff KATHY /PERCY
[~2018-11-26 19:01] MED LIST changes: +BAYER CHEWABLE81 MG PO; +COPAXONE40 MG/1 ML INJECTION; +[UNRECOGNIZED DRUG - OTHER]
[2018-11-26 19:02] VITALS: BP 143/102
[2018-11-26 19:31] LABS: ABSOLUTE EOSINOPHILS 0.3 thou/uL (0.0-0.7); ABSOLUTE LYMPHOCYTES 1.7 thou/uL (0.8-5.3); ABSOLUTE MONOCYTES 0.6 thou/uL (0.0-1.2); ABSOLUTE NEUTROPHILS 5.6 thou/uL (1.6-8.1); BASOPHILS 0.3 %; EOSINOPHILS 3.8 %; HEMATOCRIT 41.3 % (37.0-47.0); HEMOGLOBIN 13.9 gm/dL (12.0-15.0); LYMPHOCYTES 20.7 %; MCH 28.3 pg (26.0-34.0); MCHC 33.8 g/dL (28.0-37.0); MCV 83.9 fL (80.0-100.0); MONOCYTES 7.2 %; MPV 9.7 fl. (7.2-11.1); NUCLEATED RBCS 0 /100WBC; PLATELET COUNT* 185 thou/uL (150-400); RBC 4.92 mil/uL (4.20-5.00); WBC 8.2 thou/uL (4.0-11.0)
[2018-11-26 19:37] LABS: ANION GAP 10 mmol/L (7-16); APTT 22.6 Seconds (25.0-31.3); BUN 16 mg/dL (7-18); CALCIUM 9.6 mg/dL (8.5-10.1); CHLORIDE 105 mmol/L (98-107); CO2 28 mmol/L (21-32); CREATININE 1.1 mg/dL (0.6-1.3); GLUCOSE 109 mg/dL (70-99); POTASSIUM 4.4 mmol/L (3.5-5.1); SODIUM 143 mmol/L (136-145)
[2018-11-26 19:51] LABS: ALBUMIN 3.8 g/dL (3.4-5.0); ALKALINE PHOSPHATASE 68 U/L (46-116); CK-MB MASS 3.2 ng/mL (<0.5-3.6); LIPASE 71 U/L (73-393); MAGNESIUM 1.4 mg/dL (1.8-2.4); NT-PRO BRAIN NAT PEPTIDE 18 pg/mL (<300); SGOT 28 U/L (15-37); SGPT 44 U/L (30-65); TOTAL BILIRUBIN 0.3 mg/dL (<0.1-1.0); TROPONIN-I LEVEL <0.06 ng/mL (<0.06)
[2018-11-26 23:28] VITALS: BP 121/65
[2018-11-27] VITALS (8 sets, daily range): BP systolic 114–151; BP diastolic 60–78
--- NOTE | 2018-11-27 05:21 | NUR ---
PT RECIEVED FROM PACU IN . PT IS
--- NOTE | 2018-11-27 06:33 | NUR ---
PT RECIEVED FROM PACU IN ROOM 211. SAT MAINTAINED IN O2. PT IS DROWSY, OPENS EYES TO COMMAND BUT UNABLE TO FOLLOW INSTRUCTIONS. CALL LIGHT WITHIN REACH AND BED IN LOW POSITION. ADMISSION ASSESSMENT COMPLETED WITH THE BEST EFFORT POSSIBLE BY THIS RN PT UNABLE TO TELL ANYTHING. HOURLY ROUNDING DONE FOR PT SAFETY.
[2018-11-27 09:33] LABS: CALCIUM 8.9 mg/dL (8.5-10.1); CREATININE 1.1 mg/dL (0.6-1.3); MAGNESIUM 1.5 mg/dL (1.8-2.4); POTASSIUM 4.2 mmol/L (3.5-5.1)
--- NOTE | 2018-11-27 10:32 | NUR ---
Pt is A&O. Resides at [facility]. Pt recently in the hospital last week. Pt is [place]c bound. Wears o2 PRN. Goal is to return to [facility] at [place]. Following.
[2018-11-27] MEDS ORDERED: ULTRAM 50MG TAB50 MG PO (15:49)
[2018-11-27] MEDS ORDERED: LIORESAL 10 MG10 MG PO (15:51)
--- NOTE | 2018-11-27 16:20 | EKG ---
[place] [address] ELECTROCARDIOGRAM REPORT Name: ELKE AREVALO Room: [address] ADM IN ..#: [id number] Admission: 11/26/18 Attend Phys: Cassandra Barros Discharge: Date of : 45 Report #: [id number] THIS REPORT FOR: //name// [facility] ED Test Date: 2018-11-26 Test Time: 19:37:43 Pat Name: ELKE AREVALO Department: Room: 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
--- NOTE | 2018-11-27 18:22 | NUR ---
PT DROWSY BUT ORIENTED X 4, PT TACHY ON TELEMETRY MOST OF THE DAY. NPO DUE TO ASPIRATION RISK. MAG LOW 1.4, INCONTINENT OF BOWEL AND BLADDER. Q2 TURN, BEDBOUND DUE TO MS/WEAKNESS- MAX ASSIST. HIGH FALL RISK, POSSESSIONS AND CALL LIGHT WITHIN REACH HOURLY ROUNDING PERFORMED. INFORMED DR MOROCHO OF ELEVATED TEMPERATURE (100.8) AND TACHYCARDIA.
--- NOTE | 2018-11-27 19:06 | NUR ---
THIS RN AGREES WITH THE ASSESSMENT AND CHARTING OF CHRISTINE GUEVARA.
--- NOTE | 2018-11-27 19:10 | NUR ---
SPEECH THERAPY APPROACHED THIS RN ABOUT SPEECH EVALUATION FOR PT - S.T. DOES NOT FEEL COMFORTABLE PERFORMING VIDEO SWALLOW OR BEDSIDE EVAL, STATING THAT FOOD WILL MOST LIKELY JUST GET STUCK IN THE ESOPHAGUS AGAIN. GI CONTACTED TO EXPLAIN AND OBTAIN NEW DIRECTIONS FOR PLAN, BUT CALL WAS NOT RETURNED. PT TO REMAIN NPO UNTIL FURTHER ORDERS RECEIVED.
[2018-11-28 04:00] VITALS: BP 119/63
[2018-11-28 05:06] LABS: HEMATOCRIT 37.3 % (37.0-47.0); HEMOGLOBIN 12.3 gm/dL (12.0-15.0); MCH 28.1 pg (26.0-34.0); MCHC 33.1 g/dL (28.0-37.0); MCV 84.9 fL (80.0-100.0); MPV 9.7 fl. (7.2-11.1); RBC 4.4 mil/uL (4.20-5.00); RDW-CV 16.2 % (10.5-14.5); WBC 12.9 thou/uL (4.0-11.0)
[2018-11-28 05:15] LABS: CALCIUM 8.8 mg/dL (8.5-10.1); CREATININE 0.9 mg/dL (0.6-1.3)
--- NOTE | 2018-11-28 06:35 | NUR ---
PT CARE ASSUMED AT 1930. SAT MAINTAINED IN RA. PT IS CONFUSED, ORIENTED TO PERSON AND TIME. CALL LIGHT WITHIN REACH AND BED IN LOW POSITION. INCONTINENT OF BOWEL AND BLADDER. HOURLY ROUNDING DONE FOR PT SAFETY.
[2018-11-28 07:30] VITALS: BP 125/59
--- NOTE | 2018-11-28 10:30 | CON ---
[address] [address] CONSULTATION Name: ELKE AREVALO Taina Room: [address] IN .R.#: [id number] Admission: 11/26/18 Attend Phys: Cassandra Barros Discharge: Date of : 45 Report #: [id number] THIS REPORT FOR: //name// CC: Cassandra Hou DATE OF SERVICE: 11/26/2018 HISTORY OF PRESENT ILLNESS: A 73-year-old female with past medical history significant for esophageal dysmotility, who presents to the ER with food bolus impaction while eating dinner. The patient reports that she ate fish and reports that it has gotten stuck. She previously reported difficulty swallowing liquids including her saliva. The patient was seen previously 4 days back for a possible transient ischemic attack. The patient received Ativan and glucagon as a part of treatment to relieve food bolus obstruction and currently is extremely somnolent. Therefore, history has been obtained from the medical chart. PAST MEDICAL HISTORY: Multiple sclerosis, neuropathy, hypothyroidism, gastroesophageal reflux disease, COPD. SOCIAL HISTORY: No history of smoking, alcohol or recreational drug use. Unable to obtain review of systems and family history because of the patient's mental status. PHYSICAL EXAMINATION: VITAL SIGNS: Temperature 36.6, pulse rate 86, blood pressure 121/65, pulse ox 100% on 2 liters, respiratory rate 13. GENERAL: The patient is drowsy, somnolent, opens eyes to commands, but does not follow or respond appropriately. HEENT: Mucous membranes are moist. There is no congestion. LUNGS: Clear to auscultation bilaterally. CARDIOVASCULAR: Rate and rhythm regular. S1, S2 present. ABDOMEN: Soft. There is no guarding, distention, or rigidity. EXTREMITIES: Warm, well perfused. There is no edema. SKIN: Warm and dry. LABORATORY AND DIAGNOSTIC DATA: Hemoglobin 13.9, hematocrit 41.3, platelet count 185, WBC count 8.2. Sodium 143, potassium 4.4, chloride 105, bicarbonate 28, BUN 16, creatinine 1.1. CT neck: No focal inflammatory mass, fluid collection, abscess or adenopathy. CT chest: Food and fluid filling through the esophagus with dilation of the esophagus noted. Small hiatus hernia with mucosal thickening at the level of gastroesophageal junction noted. ASSESSMENT AND PLAN: Pleasant 73-year-old female [place] [address] CONSULTATION Name: ELKE AREVALO Room: [address] IN [facility]#: [id number] Admission: 11/26/18 Attend Phys: Cassandra Barros Discharge: Date of : 45 Report #: [id number] presenting for food bolus impaction. We will proceed with EGD and make further recommendations based on results of the EGD. <ELECTRONICALLY SIGNED> By: Doroteo Wallace MD 11/28/18 1030 2329 0030MD susana Holland
[2018-11-28 11:52] LABS: URINE BILIRUBIN NEGATIVE (Negative); URINE BLOOD NEGATIVE (Negative); URINE CLARITY CLEAR; URINE COLOR YELLOW; URINE GLUCOSE-RANDOM NEGATIVE (Negative); URINE KETONES 1+ (Negative); URINE LEUKOCYTES-REFLEX NEGATIVE (Negative); URINE NITRITE-REFLEX NEGATIVE (Negative); URINE PROTEIN NEGATIVE (Negative); URINE UROBILINOGEN 0.2 E.U./dl (0.2-1.0)
[2018-11-28 12:12] VITALS: BP 164/92
--- NOTE | 2018-11-28 13:11 | NUR ---
Nutrition: Pt assessed for dysphagia. H/o MS, aspiration PNA. Had esophageal disimpaction performed by GI. +BM. Wt at usual of 188#. GI recommended PEG tube, but pt refused, and continues to eat po. No nutrition interventions needed at this time. RD available via consult. Moderate nutrition risk.
--- NOTE | 2018-11-28 15:11 | NUR ---
VIDEO SWALLOW STUDY COMPLETED. OROPHARYNGEAL FUNCTION IS WFL. ALL BOLUSES CLEARED THE UPPER ESOPHAGEAL SPHINCTER. PT IS CLEARED TO HAVE PO INTAKE BY ST. WILL LEAVE PT NPO FOR GI TO DETERMINE THE MOST APPROPRIATE DIET. PT EXPRESSED NOT WANTING A PEG TUBE. NUHA, HER DPOA, REPORTED THE PT TAKING NITRO, PRESCRIBED BY DR. HAY, FOR SWALLOWING FUNCTION. ST RECOMMENDS THE LEAST RESTRICTIVE PO DIET FOR THE PT.
[2018-11-28 16:15] VITALS: BP 150/86
--- NOTE | 2018-11-28 17:07 | NUR ---
PT REMAINED ALERT TO SELF AND SITUATION, CONFUSED AT TIMES. PT UP TO COMMODE X1 ASSIST GAIT BELT. PT CURRENTLY NPO. PT REFUSED PEG TUBE. FALL RISK PRECAUTIONS IN PLACE. HOURLY ROUNDING COMPLETED. WILL CONTINUE TO MONITOR.
[2018-11-28 20:00] VITALS: BP 154/78
[2018-11-29 00:18] VITALS: BP 147/77
[2018-11-29 04:29] VITALS: BP 141/82
--- NOTE | 2018-11-29 05:04 | NUR ---
PT IS A&O X4 THIS SHIFT, CAN EXPERIENCE TIMES OF CONFUSION. PT HAS NO C/O PAIN OR DISCOMFORT. PT DID REMOVE IV WHILE SHE WAS SLEEPING, NEW IV PLACED. REMAINS NPO AT THIS TIME. PT IS CURRENTLY RESTING IN BED WITH CALL LIGHT WITHIN REACH.
[2018-11-29 08:00] VITALS: BP 195/114
--- NOTE | 2018-11-29 09:50 | NUR ---
Continue to ?peg. Faxed updated clinical info to Siobhan at [facility] Pt continues to plan to return [place] [facility] at [place]. Following.
[2018-11-29 11:17] VITALS: BP 148/83
--- NOTE | 2018-11-29 11:30 | NUR ---
ASSUMED CARE OF PATIENT THIS AM AT 0730. PATIENT IS ALERT AND ORIENTED X 4 THIS AM. SHE C/O BACK PAIN. HER BP WAS ALSO ELEVATED. SEE FLOW SHEET. DR MOROCHO NOTIFIED. PATIENT MEDICATED FOR INCREASED BP IV X 1 AND FOR C/O PAIN. SHE WAS RESTARTED ON A PO DIET RECOMMENDED BY GI. PATIENT'S HOME MEDICATIONS ALSO RESTARTED. TELE SHOWS S TACHY. WILL CONTINUE TO MONITOR PATIENT COMFORT AND SWALLOWING.
[2018-11-29 16:06] VITALS: BP 141/73
[2018-11-29 20:00] VITALS: BP 170/89
[2018-11-30] VITALS: BP 149/74
[2018-11-30 04:40] LABS: HEMATOCRIT 37.4 % (37.0-47.0); HEMOGLOBIN 12.8 gm/dL (12.0-15.0); MCH 28.7 pg (26.0-34.0); MCHC 34.1 g/dL (28.0-37.0); MCV 84.2 fL (80.0-100.0); MPV 9.2 fl. (7.2-11.1); RBC 4.44 mil/uL (4.20-5.00); RDW-CV 15.9 % (10.5-14.5); WBC 8.2 thou/uL (4.0-11.0)
[2018-11-30 04:47] LABS: CREATININE 0.9 mg/dL (0.6-1.3); MAGNESIUM 1.4 mg/dL (1.8-2.4); POTASSIUM 3.5 mmol/L (3.5-5.1)
--- NOTE | 2018-11-30 04:58 | NUR ---
PT IS A&O X4, PROGRESSING TOWARDS GOALS, ABLE TO TOLERATE HEART HEALTHY DIET WITHOUT ISSUES. PAIN PARTIALLY MANAGED WITH MEDICATIONS AND REPOSITIONING. UP TO RECLINER THIS AM. ALL NEEDS HAVE CURRENTLY BEEN MET, CALL LIGHT WITHIN REACH.
[2018-11-30 08:00] VITALS: BP 147/66
--- NOTE | 2018-11-30 12:33 | NUR ---
Pt discharging back to [facility] today, transport to molded goods spot picker between 4-430. Faxed dc orders. Chart copied. Nurse report number is [phone]. Updated DPOA, DPOA to bring clothes.
[2018-11-30] MEDS ORDERED: NORVASC5 MG PO (13:25)
[2018-11-30 16:09] VITALS: BP 147/66
--- NOTE | 2018-11-30 16:30 | NUR ---
ASSUMED PT CARE AT 1930. ASSESSMENT COMPLETED CHARTED. ABLE TO MAKE NEEDS KNOWN. UP WITH ASSIST TO BSC. C/O CHRONIC BACK PAIN. DISCHARGE ACCEPTED AND GAVE PT AV SPECIALIST DISCHARGE PAPERWORK, TRANSFER PATIENT TO [facility]. CALLING REPORT TANIA. NO COMMENTS, QUESTIONS OR CONCERNS NOTED. IV REMOVED.
== END 2018-11-30 16:30 | DRG 871 ==
LOC: M.ERS 19:01 → M.2W 21:08 → M.TBA-ER 21:08 → M.2W 11-27 01:30
PROVIDERS: Family Medicine; Internal Medicine; ADMIT Family Medicine
PROC: 0D758ZZ Dilation of Esophagus, Via Natural or Artificial Opening Endoscopic (ICD-10-PCS; principal; 2018-11-27)
DX: A41.9 Sepsis, unspecified organism (principal); G92 Toxic encephalopathy; J69.0 Pneumonitis due to inhalation of food and vomit; G82.50 Quadriplegia, unspecified; G21.9 Secondary parkinsonism, unspecified; T18.128A Food in esophagus causing other injury, initial encounter; G89.29 Other chronic pain; G62.9 Polyneuropathy, unspecified; E03.9 Hypothyroidism, unspecified; F41.9 Anxiety disorder, unspecified; J44.9 Chronic obstructive pulmonary disease, unspecified; R13.10 Dysphagia, unspecified; K21.9 Gastro-esophageal reflux disease without esophagitis; G35 Multiple sclerosis; K20.9 Esophagitis, unspecified; Z23 Encounter for immunization; Z88.6 Allergy status to analgesic agent; Z88.1 Allergy status to other antibiotic agents; Z88.2 Allergy status to sulfonamides; Z88.8 Allergy status to other drugs, medicaments and biological substances; Z79.891 Long term (current) use of opiate analgesic

== ENCOUNTER 2018-12-06 21:40 | Inpatient (IN) | payer OTHER ==
[~2018-12-06] VITALS: Ht 162.6 cm; Wt 83.3 kg
[~2018-12-06 21:40] MED LIST changes: +NORVASC5 MG PO; +ULTRAM 50MG TAB50 MG PO
[2018-12-06 21:55] VITALS: BP 154/89
[2018-12-06 22:04] LABS: ABSOLUTE BASOPHILS 0.1 thou/uL (0.0-0.2); ABSOLUTE EOSINOPHILS 0.1 thou/uL (0.0-0.7); ABSOLUTE LYMPHOCYTES 1.2 thou/uL (0.8-5.3); ABSOLUTE MONOCYTES 0.6 thou/uL (0.0-1.2); ABSOLUTE NEUTROPHILS 10.6 thou/uL (1.6-8.1); BASOPHILS 0.5 %; EOSINOPHILS 0.8 %; HEMATOCRIT 41.3 % (37.0-47.0); LYMPHOCYTES 9.4 %; MCH 28.8 pg (26.0-34.0); MCHC 33.8 g/dL (28.0-37.0); MONOCYTES 4.5 %; MPV 9.6 fl. (7.2-11.1); NUCLEATED RBCS 0 /100WBC; PLATELET COUNT* 228 thou/uL (150-400); POLYS 84.8 %; RBC 4.86 mil/uL (4.20-5.00); RDW-CV 16.3 % (10.5-14.5); WBC 12.5 thou/uL (4.0-11.0)
[2018-12-06 22:14] LABS: POTASSIUM 4.5 mmol/L (3.5-5.1)
[2018-12-06] MEDS ORDERED: DULOXETINE HCL30 MG PO (22:17)
[2018-12-06] MEDS ORDERED: COPAXONE40 MG/1 ML SUBQ (22:18)
[2018-12-06] MEDS ORDERED: DUONEB INH ×2 (22:21)
[2018-12-06 22:24] LABS: ALBUMIN 4.2 g/dL (3.4-5.0); TOTAL BILIRUBIN 0.6 mg/dL (<0.1-1.0); TOTAL PROTEIN 8.1 g/dL (6.4-8.2)
[2018-12-07 03:22] VITALS: BP 144/76
[2018-12-07 03:30] VITALS: BP 152/78
--- NOTE | 2018-12-07 05:08 | NUR ---
RECEIVED PT FROM ED PER CART AT APPROX 0330 ACCOMPANIED BY ITZEL GUEVARA. PT IS DROWSY BUT AROUSABLE AND IS ABLE TO ANSWER SIMPLE QUESTIONS. VSS ON 1L OF O2/NC, spO2 100%. ADMISSION ASSESSMENT DONE AND CHARTED. HIGH FALL PRECAUTIONS IN PLACE. CALL LIGHT WITHIN REACH. HOURLY ROUNDING DONE FOR SAFETY.
[2018-12-07 07:30] VITALS: BP 140/65
--- NOTE | 2018-12-07 08:36 | NUR ---
ASSUMED CARE OF PT AT 0730. PT LYING IN BED, PT A&0X4, FORGETFUL AND DROWSY. DENIES ANY PAIN OR SHORTNESS OF BREATH AT THIS TIME. TRACING ST ON THE TANK SETTER. RATE IN THE LOW 100'S. ON 2L NC SAT 94%. PT NOTED TO BE USING ACCESSORY MUSCLES TO BREATHE. WHEEZES AND COARSE LUNG SOUNDS NOTED IN THE BASES. ORDERS RECEIVED FOR STAT UA. PT STRAIGHT CATHETERIZED AND URINALYSIS SENT DOWN TO LAB. AWAITING RESULTS. PT INCONT OF URINE. IVF. PT UP WITH 1-2 ASSIST. HISTORY OF MS NOTED. PT DENIES ANY CHEST PAIN. AM ASSESSMENT CHARTED, MEDICATIONS PER APR. PT REPOSITIONED EVERY 2 HOURS FOR COMFORT. HOURLY ROUNDING OBSERVED. BED IN LOW POSITION. BED ALARM IN PLACE. FALL PRECAUTIONS IN PLACE. CALL LIGHT WITHIN REACH. WILL CONTINUE PLAN OF CARE.
[2018-12-07 09:34] LABS: URINE BILIRUBIN NEGATIVE (Negative); URINE BLOOD NEGATIVE (Negative); URINE CLARITY CLEAR; URINE COLOR YELLOW; URINE GLUCOSE-RANDOM NEGATIVE (Negative); URINE KETONES TRACE (Negative); URINE LEUKOCYTES-REFLEX NEGATIVE (Negative); URINE NITRITE-REFLEX NEGATIVE (Negative); URINE PROTEIN NEGATIVE (Negative); URINE UROBILINOGEN 0.2 E.U./dl (0.2-1.0)
--- NOTE | 2018-12-07 10:10 | NUR ---
Pt is A&O. Known to this CM from previous hospital stays. Pt has been inpt several times during the past 30 days. Pt is a LTC resident at [facility] and plans to return at [facility] bound, o2 prn. CM to assist with disposition once medically stable. Following.
[2018-12-07 11:44] VITALS: BP 156/78
--- NOTE | 2018-12-07 14:30 | EKG ---
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
[2018-12-07 15:09] VITALS: BP 156/78
--- NOTE | 2018-12-07 19:06 | NUR ---
PT CURRENTLY DOWN FOR EGD AT THIS TIME. WILL GIVEN ONCOMING SHIFT REPORT.
[2018-12-07 19:30] VITALS: BP 129/61
--- NOTE | 2018-12-07 19:30 | NUR ---
RETURNED TO ROOM FROM EGD. LETHARGIC, AWAKENS EASILY BUT IMMEDIATELY BACK TO SLEEP. O2 ON AT 2L/NC. ASSISTED WITH REPOSITIONING IN BED. TELEMETRY ON SHOWING ST. NO COMPLAINTS VOICED. WILL CONT TO MONITOR AND ASSIST NEEDED.
[2018-12-08] VITALS (7 sets, daily range): BP systolic 96–126; BP diastolic 45–71
[2018-12-08 04:49] LABS: ABSOLUTE BASOPHILS 0.1 thou/uL (0.0-0.2); ABSOLUTE EOSINOPHILS 0.1 thou/uL (0.0-0.7); ABSOLUTE MONOCYTES 0.8 thou/uL (0.0-1.2); ABSOLUTE NEUTROPHILS 10.6 thou/uL (1.6-8.1); BASOPHILS 0.5 %; EOSINOPHILS 0.9 %; HEMATOCRIT 41.5 % (37.0-47.0); HEMOGLOBIN 13.5 gm/dL (12.0-15.0); LYMPHOCYTES 14.5 %; MCH 27.8 pg (26.0-34.0); MCHC 32.7 g/dL (28.0-37.0); MCV 85.2 fL (80.0-100.0); MONOCYTES 6.2 %; MPV 9.9 fl. (7.2-11.1); NUCLEATED RBCS 0 /100WBC; PLATELET COUNT* 254 thou/uL (150-400); POLYS 77.9 %; RBC 4.86 mil/uL (4.20-5.00); RDW-CV 16.7 % (10.5-14.5); WBC 13.6 thou/uL (4.0-11.0)
[2018-12-08 05:08] LABS: CALCIUM 9.7 mg/dL (8.5-10.1); CREATININE 0.8 mg/dL (0.6-1.3); POTASSIUM 4.1 mmol/L (3.5-5.1)
--- NOTE | 2018-12-08 06:05 | NUR ---
SLEPT WELL, ASSISTED WITH REPOSITIONING Q 2HR. INCONT OF URINE EACH TIME. NO SKIN BREAKDOWN NOTED. PT REMAINS NPO FOR BARIUM SWALLOW THIS AM. TELEMETRY REMAINS ST TO UPPER 90'S. NO CHANGE IN ASSESSMENT. HS GOALS OF REST AND SAFETY ACHIEVED. HOURLY ROUNDING OBSERVED.
--- NOTE | 2018-12-08 13:22 | NUR ---
ASSUMED PT CARE REPORT RECEIVED FROM NURSE. PT IS AOX4 , STACHY ON REGISTERED NURSE SURGICAL SERVICES. ON 2 L NC. O2 SATURATION IS 97%. PT HAD BARRIUM SWALLOWING DONE THIS AM. STARTED ON FULL LIQUID DIET POST BARRIUM SWALLOWING XRAY. INTAKE OF MEDICATION CRUSHED WITH APPLE SAUCE. PT ASSISTED WITH POTTY TO THE BEDSIDE COMMODE. CALL LIGHT AT REACH. IV FLUID STOPPED. IV LINE PATENT. CALL LIGHT AT REACH. FALL PRECAUTION IN PLACE. WILL CONTINUE TO MONITOR PT
--- NOTE | 2018-12-08 17:41 | NUR ---
BLADDER SCANNED. 488 CC URINE RETENTION
--- NOTE | 2018-12-09 03:44 | NUR ---
ASSUMED CARE OF PT AT 1900. PT IS ALERT AND ORIENTED. VSS. PERRLA. NO COMPLAINTS OF PAIN. PT IS IN SINUS RYTHM ON THE TELEMETRY. PT IS RESTING COMFORTABLY INBED. RESPIRATIONS ARE EVEN AND NONLABOIRED. WILL CONTINUE TO MONITOR PT.
[2018-12-09 03:48] VITALS: BP 97/53
[2018-12-09 08:00] VITALS: BP 112/57
--- NOTE | 2018-12-09 10:43 | CON ---
[address] [address] CONSULTATION Name: ELKE AREVALO Taina Room: [address] IN .R.#: [id number] Admission: 12/07/18 Attend Phys: Dora Friedman MD Discharge: Date of : 45 Report #: [id number] THIS REPORT FOR: //name// CC: Dora Rincon DICTATED BY: Pricilla Yadav [facility] DATE OF SERVICE: 12/07/2018 Please note at the time of this dictation, the patient was seen and physically examined by myself. REASON FOR CONSULTATION: Chest pain, likely food bolus. HISTORY OF PRESENT ILLNESS: This is a 73-year-old female who was recently discharged from the hospital on 11/30 after coming in on 11/26 with a food bolus and only part of it was removed. Procedure had to be aborted secondary to O2 saturations. It was reattempted the next day. The rest of the food was removed and some of it pushed down into her stomach. The patient states that after she was discharged within a couple of days, she started having a little bit of chest discomfort, which progressively got worse. After she ate dinner yesterday, she began having some shortness of breath and coughing along with some vomiting and she is complaining of it being substernal right between her breast and higher up of the discomfort. ALLERGIES: SULFA, MORPHINE, CODEINE, AMPICILLIN, CLARITHROMYCIN, TUSSIONEX, DEMEROL AND LEVAQUIN. MEDICATIONS: From home include levothyroxine, Lipitor, Remi-Gest, Flonase, Neurontin, Zestril, Centrum, Nitrostat, senna, Tylenol, Zofran, MiraLax, Symbicort, oxybutynin, Refresh classic eyedrops, Benadryl, Voltaren, Biofreeze, travoprost eyedrops, vitamin D, Atrovent, methadone, artificial tears, Sadia aspirin 81 mg, and calcium carbonate, tramadol, baclofen, duloxetine, and DuoNeb nebulizers. PAST MEDICAL HISTORY: MS, chronic pain, neuropathy, hypothyroidism, anxiety, GERD, chronic pain and opioid use, COPD, chronic kidney disease stage 3, esophageal dysmotility. FAMILY HISTORY: Noncontributory. SOCIAL HISTORY: Denies any alcohol, tobacco or illegal drug use. REVIEW OF SYSTEMS: Twelve-point review of [place] [id number] CONSULTATION Name: ELKE AREVALO Room: [address] [place] [facility]#: [id number] Admission: 12/07/18 Attend Phys: Dora Friedman MD Discharge: Date of : 45 Report #: [id number] except what is mentioned in the HPI. PHYSICAL EXAMINATION: VITAL SIGNS: Temperature 36.7, pulse 104, respirations 18, blood pressure 149/65. HEART: Regular rate and rhythm. LUNGS: Diminished, but clear. ABDOMEN: Soft, positive bowel sounds in all 4 quadrants with no masses or tenderness noted. She is complaining of chest pain. LABORATORY DATA: Hemoglobin is 14, white count is 12.4, platelets 228. GFR is 54. Chest x-ray is normal. IMPRESSION: 1. Chest pain. 2. Nausea, vomiting. 3. Recent food bolus on 11/26 likely this is happening again. 4. Chronic pain with narcotic use. 5. Chronic kidney disease and MS. PLAN: 1. EGD today with likely Botox with Dr. Araujo, patient will need to be intubated. 2. We will likely need a barium swallow tomorrow to evaluate her swallowing issues. 3. Further recommendations to be made after the procedure has been performed. Thank you for allowing us to participate in this patient's care. Please do not hesitate to call with any questions in regard to this consult. <ELECTRONICALLY SIGNED> By: Kael Araujo DO 12/09/18 1043 1047 1201Kael Araujo DO /nt
[2018-12-09 11:04] VITALS: BP 108/39
[2018-12-09 14:39] LABS: ABSOLUTE BASOPHILS 0.1 thou/uL (0.0-0.2); ABSOLUTE EOSINOPHILS 0.1 thou/uL (0.0-0.7); ABSOLUTE LYMPHOCYTES 1.9 thou/uL (0.8-5.3); ABSOLUTE MONOCYTES 0.7 thou/uL (0.0-1.2); ABSOLUTE NEUTROPHILS 6.2 thou/uL (1.6-8.1); BASOPHILS 0.7 %; EOSINOPHILS 1.5 %; HEMATOCRIT 39.7 % (37.0-47.0); HEMOGLOBIN 13.6 gm/dL (12.0-15.0); LYMPHOCYTES 21.5 %; MCHC 34.3 g/dL (28.0-37.0); MCV 84.6 fL (80.0-100.0); MONOCYTES 7.3 %; MPV 9.6 fl. (7.2-11.1); NUCLEATED RBCS 0 /100WBC; PLATELET COUNT* 256 thou/uL (150-400); RBC 4.69 mil/uL (4.20-5.00); RDW-CV 16.2 % (10.5-14.5)
[2018-12-09 15:05] LABS: ALBUMIN 3.3 g/dL (3.4-5.0); CALCIUM 9.6 mg/dL (8.5-10.1); POTASSIUM 3.7 mmol/L (3.5-5.1); TOTAL BILIRUBIN 0.4 mg/dL (<0.1-1.0); TOTAL PROTEIN 6.8 g/dL (6.4-8.2)
[2018-12-09 15:31] VITALS: BP 102/62
[2018-12-09 20:00] VITALS: BP 99/57
--- NOTE | 2018-12-09 20:26 | NUR ---
ASSUMED PT CARE AROUND 0700, PT NOTED TO BE RESTING IN BED A/OX4. PT DENIES PAIN. VSS. PT WAS ABLE TO SIT IN RECLINER FOR A FEW HOURS WITH ASSISTANCE. MAINTAINED SR AND ST ON TELE MONITOR. PT DIET PROGRESS TO MECHANICAL GROUND, PT WAS NOT COMFORTABLE EATING SOLIDS, PREFERRED ENSURE SHAKES. HOURLY ROUNDS AND ASSESSMENT COMPLETE AND DOCUMENTED IN CHART. CALL LIGHT AND PERSONAL BELONGINGS IN REACH. PT WAS PLEASANT AND COMPLIANT WITH ALL NURSING CARE.
--- NOTE | 2018-12-09 20:30 | NUR ---
this rn has reviewed the charting of kelly goel
[2018-12-10 00:46] VITALS: BP 116/61
[2018-12-10 04:00] VITALS: BP 127/56
[2018-12-10 05:15] LABS: ABSOLUTE BASOPHILS 0.1 thou/uL (0.0-0.2); ABSOLUTE EOSINOPHILS 0.3 thou/uL (0.0-0.7); ABSOLUTE LYMPHOCYTES 3.1 thou/uL (0.8-5.3); ABSOLUTE MONOCYTES 0.6 thou/uL (0.0-1.2); ABSOLUTE NEUTROPHILS 4.5 thou/uL (1.6-8.1); BASOPHILS 0.6 %; EOSINOPHILS 3.9 %; HEMOGLOBIN 12.9 gm/dL (12.0-15.0); LYMPHOCYTES 36.2 %; MCH 28.9 pg (26.0-34.0); MONOCYTES 7.1 %; MPV 9.7 fl. (7.2-11.1); NUCLEATED RBCS 0 /100WBC; PLATELET COUNT* 228 thou/uL (150-400); POLYS 52.2 %; RBC 4.47 mil/uL (4.20-5.00); RDW-CV 16.5 % (10.5-14.5); WBC 8.7 thou/uL (4.0-11.0)
[2018-12-10 06:02] LABS: CALCIUM 9.2 mg/dL (8.5-10.1); CREATININE 0.9 mg/dL (0.6-1.3); POTASSIUM 4.1 mmol/L (3.5-5.1)
--- NOTE | 2018-12-10 07:09 | NUR ---
ASSUMED PT CARE AT 1900. SR ON SAFETY LEAD. PT C/O PAIN MEDICATION THIS SHIFT, DR. LAWLER NOTIFIED AND NEW ORDERS RECEIVED. SEE EMAR FOR DOCUMENTATION. PT BLADDER SCANNED THIS SHIFT. LESS THAN 100 ML RESIDUAL AFTER VOID. HOURLY ROUNDING COMPLETED. Q2H REPOSITIONING COMPLETED. HIGH FALL PRECAUTIONS IN PLACE. CALL LIGHT WITHIN REACH.
[2018-12-10 08:00] VITALS: BP 102/55
[2018-12-10 12:00] VITALS: BP 123/56
[2018-12-10 16:00] VITALS: BP 117/56
--- NOTE | 2018-12-10 16:27 | NUR ---
assumed pt care report received from nurse.pt is alert awake, oriented x4. on ra.sinus tachy on library monitor. accucheck ac/hs. repositioned q2 hours. up to chair with max assist. urinated in bedside commode. heado f bed elevated at meal time. complains of generalized pain. baclofen and methadone was given. see emar. call light at reach. fall precaution in place. will continue to monitor pt
--- NOTE | 2018-12-10 19:12 | NUR ---
pt blood sugar was wrongly documented this am by salary and wage administrator. apparently salary and wage administrator scanned pt armband but checked another patient's blood sugar. dr ocasio notified. salary and wage administrator to fill incident report
[2018-12-10 20:00] VITALS: BP 96/50
[2018-12-11] VITALS (7 sets, daily range): BP systolic 102–144; BP diastolic 47–77
[2018-12-11 02:05] LABS: GLYCOHEMOGLOBIN (HGB A1C) 5.4 % (4.8-5.6)
--- NOTE | 2018-12-11 05:08 | NUR ---
ASSUMED PATIENT CARE AT 1900. ASSESSMENT COMPLETED CHARTED. VSS. SR ON MONITOR. HOURLY ROUNDING IN PLACE FOR PATIENT SAFETY. CLWR.
--- NOTE | 2018-12-11 07:36 | NUR ---
REVIEWED AND AGREE WITH ZENAIDA GANN RN, NURSING ASSESSMENT.
--- NOTE | 2018-12-11 09:36 | NUR ---
Pt discharging back to [facility] today. [facility] to [facility] at 130. Updated DPOA. Chart copied. Nurse report is [phone]. Faxed orders.
[2018-12-11] MEDS ORDERED: DIFLUCAN100 MG PO (11:30)
--- NOTE | 2018-12-11 13:43 | NUR ---
ASSUMED PT CARE REPORT RECEIVED FROM NURSE. PT IS AOX4 FORGETFUL. VSS. ON RA. TRACING SINUS TACHYCARDIA ON HEART MONITOR. PT URINATED X2 PRIOR TO ADMISSION. DENIES PAIN, N/V. MEDICATION GIVEN ORDERED. PT OUT OF BED TO CHAIR. HEAD OF BED ELEVATED DURING MEAL TIME. PT LEFT FLOOR AT 1340 ACCOMPANIED BY TRANSPORTER TO GO TO [facility] VIA WHEELCHAIR.
--- NOTE | 2018-12-11 13:55 | NUR ---
REPORT GIVEN TO PAOLA ROBERTS FROM [facility].
--- NOTE | 2018-12-12 14:06 | PATH ---
[address] [address] PATHOLOGY RPT PROCEDURE Name: JESSICA MONROY Taina Room: [address] IN M.R.#: [id number] Admission: 12/07/18 Date of : 45 Discharge: 12/11/18 Report #: [id number] Path Case #: [id number] [facility] Accession Number: [id number] . 01 Material submitted: . esophagus - BIOPSIES OF ESOPHAGUS AT 30CM, SUSPECT GALILEO 1818. Modifiers: 30CM . 01 Clinical history: . None provided . 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 (See comment) . (PHYLLIS:austin; 12/12/2018) QLM 12/12/2018 1048 Local . 02 Comment: A properly-controlled GMS stain performed on A1 highlights few fungal elements compatible with Galileo species which are, however, seen only within inflammatory debris and no organisms are seen within the abundant squamous epithelial tissues present and therefore this could represent colonization. . Special stain: GMS . (PHYLLIS:mml; 12/12/2018) . 02 Electronically signed: . Vamsi Mcdonald MD, Pathologist NPI- [id number] . 01 Gross description: . Received in formalin labeled "Jessica Monroy, biopsy of esophagus at 30 cm, suspect galileo," is a single segment of dwyer soft tissue measuring 0.6 cm in maximum dimension. The specimen is entirely submitted in cassette A1. (TSD; 12/08/2018) TOB/TOB 12/08/2018 1646 Local . 02 Pathologist provided ICD-10: K20.9 . 02 CPT . 380277, [id number] [place] [address] PATHOLOGY RPT PROCEDURE Name: JESSICA MONROY Room: [address] IN [facility]#: [id number] Admission: 12/07/18 Date of : 45 Discharge: 12/11/18 Report #: [id number] Path Case #: [id number] Specimen Comment: A courtesy copy of this report has been sent to Specimen Comment: [phone], , . Specimen Comment: Report sent to ,DR LAWLER / DR STROUD Performed at: 01 [facility] [place] [address], [place], [place] [id number] MD Julio C Nolasco MD Phone: [phone] Performed at: 02 [facility] [place] [address] [address], [place], [place] [id number] MD Vamsi Mcdonald MD Phone: [phone]
== END 2018-12-11 13:40 | DRG 391 ==
LOC: M.ERS 21:40 → M.TBA-ER 12-07 02:46 → M.2W 12-07 02:46
PROVIDERS: Emergency Medicine; Internal Medicine; ADMIT Internal Medicine
PROC: 0DB58ZX Excision of Esophagus, Via Natural or Artificial Opening Endoscopic, Diagnostic (ICD-10-PCS; principal; 2018-12-07)
PROC: 3E0G8GC Introduction of Other Therapeutic Substance into Upper GI, Via Natural or Artificial Opening Endoscopic (ICD-10-PCS; principal; 2018-12-07)
PROC: 0DC58ZZ Extirpation of Matter from Esophagus, Via Natural or Artificial Opening Endoscopic (ICD-10-PCS; principal; 2018-12-07)
DX: K22.4 Dyskinesia of esophagus (principal); R65.11 Systemic inflammatory response syndrome (SIRS) of non-infectious origin with acute organ dysfunction; G93.41 Metabolic encephalopathy; B37.81 Candidal esophagitis; K22.10 Ulcer of esophagus without bleeding; G35 Multiple sclerosis; G89.29 Other chronic pain; G62.9 Polyneuropathy, unspecified; E03.9 Hypothyroidism, unspecified; F41.9 Anxiety disorder, unspecified; K21.9 Gastro-esophageal reflux disease without esophagitis; J44.9 Chronic obstructive pulmonary disease, unspecified; N18.3 Chronic kidney disease, stage 3 (moderate); Z66 Do not resuscitate; R13.10 Dysphagia, unspecified; Z87.440 Personal history of urinary (tract) infections; Z79.891 Long term (current) use of opiate analgesic; Z88.8 Allergy status to other drugs, medicaments and biological substances; Z88.1 Allergy status to other antibiotic agents; Z88.6 Allergy status to analgesic agent; Z88.2 Allergy status to sulfonamides; Z79.899 Other long term (current) drug therapy; Z79.82 Long term (current) use of aspirin; Z79.51 Long term (current) use of inhaled steroids; T18.128A Food in esophagus causing other injury, initial encounter; X58.XXXA Exposure to other specified factors, initial encounter; Y93.89 Activity, other specified; Y92.89 Other specified places as the place of occurrence of the external cause; Y99.8 Other external cause status

== ENCOUNTER 2018-12-13 11:44 | Inpatient (IN) | payer OTHER ==
[~2018-12-13] VITALS: Ht 149.9 cm; Wt 83.0 kg
[~2018-12-13 11:44] MED LIST changes: +COPAXONE40 MG/1 ML SUBQ; +DIFLUCAN100 MG PO; +DULOXETINE HCL30 MG PO; +DUONEB INH
[2018-12-13 11:55] VITALS: BP 96/37
[2018-12-13 12:50] LABS: URINE BLOOD NEGATIVE (Negative); URINE CLARITY CLEAR; URINE COLOR YELLOW; URINE GLUCOSE-RANDOM NEGATIVE (Negative); URINE KETONES TRACE (Negative); URINE LEUKOCYTES-REFLEX NEGATIVE (Negative); URINE NITRITE-REFLEX NEGATIVE (Negative); URINE PROTEIN NEGATIVE (Negative); URINE UROBILINOGEN 0.2 E.U./dl (0.2-1.0)
[2018-12-13 12:52] LABS: ABSOLUTE EOSINOPHILS 0.3 thou/uL (0.0-0.7); ABSOLUTE LYMPHOCYTES 2.5 thou/uL (0.8-5.3); ABSOLUTE MONOCYTES 1.1 thou/uL (0.0-1.2); ABSOLUTE NEUTROPHILS 6.6 thou/uL (1.6-8.1); BASOPHILS 0.2 %; EOSINOPHILS 2.8 %; HEMATOCRIT 37.8 % (37.0-47.0); HEMOGLOBIN 12.8 gm/dL (12.0-15.0); LYMPHOCYTES 24.1 %; MCH 28.7 pg (26.0-34.0); MCHC 33.9 g/dL (28.0-37.0); MCV 84.5 fL (80.0-100.0); MONOCYTES 10.7 %; NUCLEATED RBCS 0 /100WBC; PLATELET COUNT* 264 thou/uL (150-400); POLYS 62.2 %; RBC 4.47 mil/uL (4.20-5.00); RDW-CV 16.3 % (10.5-14.5); WBC 10.5 thou/uL (4.0-11.0)
[2018-12-13 12:53] LABS: ICTOTEST (BILI CONFIRMATORY) Negative (Negative); URINE BILIRUBIN 1+ (Negative)
[2018-12-13 12:59] LABS: CALCIUM 10.1 mg/dL (8.5-10.1); POTASSIUM 4.5 mmol/L (3.5-5.1); PROTIME 10.1 Seconds (9.20-11.50)
[2018-12-13 13:13] LABS: ALBUMIN 3.5 g/dL (3.4-5.0); TOTAL BILIRUBIN 0.5 mg/dL (<0.1-1.0); TOTAL PROTEIN 6.6 g/dL (6.4-8.2)
--- NOTE | 2018-12-13 15:13 | EKG ---
[place] [address] ELECTROCARDIOGRAM REPORT Name: ELKE AREVALO Room: [facility]#: [id number] Admission: 12/13/18 Attend Phys: Discharge: Date of : 45 Report #: [id number] THIS REPORT FOR: //name// 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
[2018-12-13 20:44] VITALS: BP 93/39
[2018-12-13 21:57] LABS: CALCIUM 9.3 mg/dL (8.5-10.1); CREATININE 1.3 mg/dL (0.6-1.3); POTASSIUM 4.8 mmol/L (3.5-5.1)
[2018-12-13 22:00] VITALS: BP 102/40
[2018-12-14] VITALS: BP 142/63
[2018-12-14 04:00] VITALS: BP 103/42
--- NOTE | 2018-12-14 05:29 | NUR ---
THROUGH THE NIGHT PT BECAME INCREASING AGITATED AND AGRESSIVE. PT PULLED OUT EXISTING IV. AND PULLED OFF HER HEART MONITOR. A NEW IV ACCESS WAS OBTAINED, AND MONITOR WAS REPLACED. RECOMENDED A FEMALE NURSE FOR THIS PT, PT DOESNT RESPOND TO MALE NURSES. FALL PRECAUTIONS IN PLACE. HOURLY ROUNDING FOR SAFEY. VSS.
[2018-12-14 08:00] VITALS: BP 105/47
[2018-12-14 14:00] VITALS: BP 90/43
--- NOTE | 2018-12-14 14:29 | NUR ---
MET WITH PT TO DISCUSS HOME SITUATION/DC PLANNING. 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 JUST DC'D BACK A FEW DAYS AGO, READMITTED WITH JG. PT PLANS TO RETURN TO [facility] AT DC. CALLED AND UPDATED [facility] AND FAXED CLINICAL. WILL FOLLOW
[2018-12-14 16:00] VITALS: BP 91/37
[2018-12-14 19:30] VITALS: BP 103/50
--- NOTE | 2018-12-14 20:56 | NUR ---
INITAL ASSESMENT COMPLETED AT 1930. PT ALERT AND ORIENTED X4, DENIES PAIN OR DISCOMFORT. CALL LIGHT IN REACH, PT DEMONSTRATES PROPER USE.
--- NOTE | 2018-12-14 23:47 | NUR ---
PT RANG CALL LIGHT AND REPORTED CHEST PRESSURE. STAT 12 LEAD EKG DONE. APPLIED [address] AMERICO TOLLIVER[address]
[2018-12-15] VITALS: BP 109/52
[2018-12-15 09:21] LABS: ABSOLUTE EOSINOPHILS 0.1 thou/uL (0.0-0.7); ABSOLUTE LYMPHOCYTES 1.4 thou/uL (0.8-5.3); ABSOLUTE MONOCYTES 0.5 thou/uL (0.0-1.2); BASOPHILS 0.6 %; EOSINOPHILS 2.1 %; HEMATOCRIT 35.2 % (37.0-47.0); HEMOGLOBIN 11.8 gm/dL (12.0-15.0); LYMPHOCYTES 23.3 %; MCH 28.9 pg (26.0-34.0); MCHC 33.4 g/dL (28.0-37.0); MCV 86.3 fL (80.0-100.0); MONOCYTES 8.7 %; MPV 10.9 fl. (7.2-11.1); NUCLEATED RBCS 0 /100WBC; PLATELET COUNT* 206 thou/uL (150-400); POLYS 65.3 %; RBC 4.08 mil/uL (4.20-5.00); RDW-CV 16.2 % (10.5-14.5); WBC 6.1 thou/uL (4.0-11.0)
[2018-12-15 09:28] LABS: ALBUMIN 3.3 g/dL (3.4-5.0); CALCIUM 9.2 mg/dL (8.5-10.1); CREATININE 0.9 mg/dL (0.6-1.3); MAGNESIUM 1.5 mg/dL (1.8-2.4); POTASSIUM 4.7 mmol/L (3.5-5.1); TOTAL BILIRUBIN 0.4 mg/dL (<0.1-1.0); TOTAL PROTEIN 5.9 g/dL (6.4-8.2)
[2018-12-15 12:00] VITALS: BP 129/66
--- NOTE | 2018-12-15 14:11 | NUR ---
ORDER RECEIVED FOR DC BACK TO [facility]. CALLED AND FAXED DC ORDERS TO [facility]. SHE ASKED THAT CM SET UP W/C VAN. CALLED AND SET UP W/C VAN THRU RED LETTER FOR [phone] TODAY. PT AWARE. CALLED AND NOTIFIED LISETTE/NUHA ALSO. CHART COPIED. RN HAS NUMBER TO CALL REPORT
[2018-12-15 16:01] VITALS: BP 129/66
--- NOTE | 2018-12-15 18:21 | EKG ---
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
--- NOTE | 2018-12-15 19:11 | NUR ---
ORDER RECEIVED TO DISHCARGE JOSHUA BACK TO [facility]. REPORT CALLED. IVS DCD AND TELEMTRTY PACK REMOVED. NICK DISCONTINUED PRIOR TO DISCHARGE SHE DID NOT COME TO THE HOSPITAL WITH A NICK CATHETER. VSS. JOSHUA IN NOAPPARNET DISTRESS AT TIME OF DISCHARGE. HOURLY ROUNDING COMPLETED.
== END 2018-12-15 17:26 | DRG 917 ==
LOC: M.ERS 11:44 → M.2W 16:00 → M.TBA-ER 16:00 → M.2W 21:00
PROVIDERS: Family Medicine; ADMIT Internal Medicine
DX: T40.601A Poisoning by unspecified narcotics, accidental (unintentional), initial encounter (principal); G93.41 Metabolic encephalopathy; N17.9 Acute kidney failure, unspecified; F11.20 Opioid dependence, uncomplicated; G89.29 Other chronic pain; J44.9 Chronic obstructive pulmonary disease, unspecified; N18.3 Chronic kidney disease, stage 3 (moderate); I12.9 Hypertensive chronic kidney disease with stage 1 through stage 4 chronic kidney disease, or unspecified chronic kidney disease; G62.9 Polyneuropathy, unspecified; E03.9 Hypothyroidism, unspecified; K21.9 Gastro-esophageal reflux disease without esophagitis; Z88.6 Allergy status to analgesic agent; Z88.1 Allergy status to other antibiotic agents; Z88.2 Allergy status to sulfonamides; Z88.8 Allergy status to other drugs, medicaments and biological substances